=== PATIENT | female | born 1935 | race Caucasian/White ===

== ENCOUNTER → 2019-08-24 10:43 | Outpatient (BNVA) | payer MEDICARE, MEDICAID, SELFPAY | PROVIDERS: Family Provider Nurse Practitioner Family; PCP Nurse Practitioner Family; Visit Provider Family Medicine | DX: E11.9 Type 2 diabetes mellitus without complications (principal); Z79.4 Long term (current) use of insulin | CPT/HCPCS: 36415; 80053; 83036; 85025 ==

== ENCOUNTER → 2020-01-15 10:45 | Outpatient (BNVA) | payer MEDICARE, MEDICAID, SELFPAY | PROVIDERS: Family Provider Family Medicine; PCP Nurse Practitioner Family; Visit Provider Family Medicine | DX: E11.9 Type 2 diabetes mellitus without complications (principal); Z79.4 Long term (current) use of insulin | CPT/HCPCS: 36416; 83036 ==

== ENCOUNTER → 2020-03-12 10:50 | Outpatient (BNVA) | payer MEDICARE, MEDICAID, SELFPAY | PROVIDERS: Family Provider Family Medicine; PCP Nurse Practitioner Family; Visit Provider Family Medicine | DX: J43.0 Unilateral pulmonary emphysema [MacLeod's syndrome] (principal) | CPT/HCPCS: 71046 ==

== ENCOUNTER → 2020-07-03 11:06 | Outpatient (BNVA) | payer MEDICARE, MEDICAID, SELFPAY | PROVIDERS: Family Provider Family Medicine; PCP Nurse Practitioner Family; Visit Provider Family Medicine | DX: E11.9 Type 2 diabetes mellitus without complications (principal); I10 Essential (primary) hypertension; Z79.4 Long term (current) use of insulin; I25.119 Atherosclerotic heart disease of native coronary artery with unspecified angina pectoris | CPT/HCPCS: 36415; 80053; 80061; 83036; 85025 ==

== ENCOUNTER → 2020-10-02 10:39 | Outpatient (BNVA) | payer MEDICARE, MEDICAID, SELFPAY | PROVIDERS: Family Provider Family Medicine; PCP Nurse Practitioner Family; Visit Provider Family Medicine | DX: E11.9 Type 2 diabetes mellitus without complications (principal); Z79.4 Long term (current) use of insulin | CPT/HCPCS: 83036 ==

== ENCOUNTER → 2021-01-01 10:41 | Outpatient (BNVA) | payer MEDICARE, MEDICAID, SELFPAY | PROVIDERS: Family Provider Family Medicine; PCP Nurse Practitioner Family; Visit Provider Family Medicine | DX: E11.9 Type 2 diabetes mellitus without complications (principal); Z79.4 Long term (current) use of insulin | CPT/HCPCS: 83036 ==

== ENCOUNTER → 2021-04-20 11:01 | Outpatient (BNVA) | payer MEDICARE, MEDICAID, SELFPAY | PROVIDERS: Family Provider Family Medicine; PCP Nurse Practitioner Family; Visit Provider Family Medicine | DX: E11.9 Type 2 diabetes mellitus without complications (principal); Z79.4 Long term (current) use of insulin | CPT/HCPCS: 83036 ==

== ENCOUNTER → 2021-08-05 10:25 | Outpatient (BNVA) | payer MEDICARE, MEDICAID, SELFPAY | PROVIDERS: Family Provider Family Medicine; PCP Nurse Practitioner Family; Visit Provider Family Medicine | DX: E11.65 Type 2 diabetes mellitus with hyperglycemia (principal); Z79.4 Long term (current) use of insulin | CPT/HCPCS: 83036 ==

== ENCOUNTER → 2022-01-14 09:29 | Outpatient (BNVA) | payer MEDICARE, MEDICAID, SELFPAY | PROVIDERS: Family Provider Family Medicine; PCP Nurse Practitioner Family; Visit Provider Family Medicine | DX: E11.65 Type 2 diabetes mellitus with hyperglycemia (principal); Z79.4 Long term (current) use of insulin; H91.90 Unspecified hearing loss, unspecified ear; J43.0 Unilateral pulmonary emphysema [MacLeod's syndrome]; I10 Essential (primary) hypertension; I25.119 Atherosclerotic heart disease of native coronary artery with unspecified angina pectoris; J44.9 Chronic obstructive pulmonary disease, unspecified; R09.02 Hypoxemia | CPT/HCPCS: 82962; 83036 ==

== ENCOUNTER → 2022-01-20 14:00 | Outpatient (BNVA) | payer MEDICARE, MEDICAID, SELFPAY | PROVIDERS: Family Provider Family Medicine; PCP Nurse Practitioner Family; Visit Provider Family Medicine | DX: E11.9 Type 2 diabetes mellitus without complications (principal); I25.10 Atherosclerotic heart disease of native coronary artery without angina pectoris | CPT/HCPCS: 80053; 80061; 85025 ==

== ENCOUNTER → 2022-05-05 09:25 | Outpatient (BNVA) | payer MEDICARE, MEDICAID, SELFPAY | PROVIDERS: Family Provider Family Medicine; PCP Nurse Practitioner Family; Visit Provider Family Medicine | DX: E11.65 Type 2 diabetes mellitus with hyperglycemia (principal); Z79.4 Long term (current) use of insulin; L03.90 Cellulitis, unspecified; J44.9 Chronic obstructive pulmonary disease, unspecified; R09.02 Hypoxemia | CPT/HCPCS: 80053; 83036 ==

== ENCOUNTER → 2022-08-09 16:47 | Outpatient (BNVA) | payer MEDICARE, MEDICAID, SELFPAY | PROVIDERS: Family Provider Family Medicine; PCP Nurse Practitioner Family; Visit Provider Nurse Practitioner Family | DX: J44.0 Chronic obstructive pulmonary disease with (acute) lower respiratory infection (principal); J96.00 Acute respiratory failure, unspecified whether with hypoxia or hypercapnia; J44.1 Chronic obstructive pulmonary disease with (acute) exacerbation | CPT/HCPCS: 80048 ==

== ENCOUNTER 2022-08-10 11:38 | Inpatient (IN) | payer MEDICARE, MEDICAID, SELFPAY ==
[2022-08-10] VITALS (11 sets, daily range): BP systolic 124–144; BP diastolic 54–81; PULSE 90–115; RESP 12–25; TEMP 36.9; O2SAT 3–100
--- NOTE | 2022-08-10 12:03 | XRR_ITS ---
PROCEDURE INFORMATION: Exam: XR Chest Exam date and time: 08/10/2022 12:24 PM Age: 87 years old Clinical indication: Shortness of breath; Additional info: SOB TECHNIQUE: Imaging protocol: Radiologic exam of the chest. Views: 1 view. COMPARISON: CR XR chest 2V* [id number] 03/12/2020 11:00 AM FINDINGS: Lungs: Unremarkable. No consolidation. Pleural spaces: Moderate left lower lobe pleural effusion. No pneumothorax. Heart/Mediastinum: Unremarkable. No cardiomegaly. Bones/joints: Multiple chronic left rib fractures XR/XR chest 1V [id number] IMPRESSION: 1. Large left lower lobe pleural effusion 2. Chronic rib fractures left hemithorax 3. Otherwise negative chest examination
--- NOTE | 2022-08-10 12:04 | ED_ITS ---
HPI - SOB/Dyspnea General: Chief Complaint: Shortness of Breath/Dyspnea Stated Complaint: RESP. DISTRESS Time Seen by Provider: 08/10/22 11:52 Source: patient and EMS Mode of arrival: EMS Limitations: no limitations History of Present Illness: HPI Narrative: This patient was transported to our emergency department from a long-term care facility [facility] by EMS. History from EMS is that they were notified by [facility] that she seemed to have increasing oxygen requirement this morning. They arrived and noted to be on simple mask with an O2 saturation of 82%. She was alert otherwise. She was given 2 albuterol Neb en route. Patient who is somewhat hard of hearing but appears to be comfortable states that she has no chest pain and does not feel short of air at this time. She admits to wearing oxygen all the time. She denies any nausea vomiting diarrhea. She states she ate breakfast but cannot remember what it was this morning. Allegedly the patient was recently hospitalized at [facility] for approximately 10 days for pneumonia and COPD exacerbation. No records available currently. Pertinent past history: COPD Context: recent illness Severity: moderate Relieving factors: bronchodilators Known history of: COPD Associated symptoms: Deny abdominal pain, chest pain, fever(s), nausea, palpitations or vomiting Related Data: Home oxygen amount: 2 liters Review of Systems Const: Denies: fever(s) ENMT: Denies: odynophagia, nasal discharge or nasal congestion Card: Denies: chest pain or palpitations GI: Denies: abdominal pain, nausea, vomiting or diarrhea : Denies: difficulty voiding or dysuria Musc: Denies: back pain Skin/Breast: Denies: rash [facility] ED PFSH: Medical History CAD (coronary artery disease) COPD (chronic obstructive pulmonary disease) Diabetes Enrolled in chronic care management Hypertension Pedal edema Social History Smoking and tobacco status: former smoker Quit status (tobacco): has quit using tobacco Year quit tobacco: 1994 Alcohol intake: current Alcohol intake frequency: holidays/special occasions only Physical Exam Narrative: EXAM NARRATIVE: Elderly female who appears to be comfortable. Again somewhat hard of hearing but communicates appropriately when spoken to in a loud voice. Const: COMMON NORMALS: no acute distress, average body habitus and alert GENERAL APPEARANCE: cooperative and comfortable ORIENTATION/CONSCIOUSNESS: Yes awake and Yes oriented to person HENMT: COMMON NORMALS: normocephalic, Normal nasal mucous membranes and turbinates present, moist oral mucous membranes and oropharynx normal HEAD & SCALP: normocephalic NOSE: Normal nasal mucous membranes and turbinates present Eye: COMMON NORMALS: Equal, round and reactive pupils present, EOMs intact bilaterally and conjunctivae normal CONJUNCTIVA: Yes conjunctivae normal PUPIL: Yes Equal, round and reactive pupils present Neck/C-Spine: COMMON NORMALS: full ROM, no lymphadenopathy, no JVD and No carotid bruits Chest: COMMONS NORMALS: normal inspection of the chest and normal palpation of entire chest wall Resp: COMMON NORMALS: normal respiratory effort, No retractions and No use of accessory muscles EFFORT & INSPECTION: Yes able to speak in complete sentences AUSCULTATION: crackles (Scattered crackles at bases.) Cardio: COMMON NORMALS: no JVD, regular rate, regular rhythm, No murmurs present (Cardio) and Peripheral pulses 2+ throughout RATE: regular rate and tachycardic RHYTHM: regular rhythm PERIPHERAL PULSES: Peripheral pulses 2+ throughout GI: COMMON NORMALS: Normal to inspection, nondistended, normoactive bowel so unds present, Soft to palpation, non-tender and no masses PALPATION: Yes Soft to palpation : COMMON NORMALS: Yes no CVA tenderness BLADDER/KIDNEY EXAM: Yes no CVA tenderness Back/Pelvis: COMMON NORMALS: no CVA tenderness, no thoracic nor lumbar tenderness and straight leg raise negative bilaterally Extremity: COMMON NORMALS: normal to inspection, full ROM, capillary refill normal, no calf tenderness and no pedal edema Neuro: COMMON NORMALS: moves all extremities, no focal motor deficits and no sensory deficits noted SENSORIUM/ORIENTATION: Yes alert and Yes oriented to person Psych: COMMON NORMALS: mental status grossly normal Skin: COMMON NORMALS: no rashes or lesions noted, no wounds and turgor normal GENERAL SKIN EXAM: no rashes or lesions noted and turgor normal Course Reevaluation(s): Reevaluation #1: With somewhat unreliable waveform her O2 sat is around 90% on 3 L. We will go ahead and get an ABG to kind of determine her true ventilatory and oxygenation status at this time. I did speak with the RN at the long-term care facility who stated that she did not wear her BiPAP at night and she was not comfortable with that and it was a challenge to get her to wear her oxygen during the day as well. I also obtained additional history regarding her recent past from her daughter who is now present. Daughter states that she is never been told she had heart failure any, heart problems previously. She also stated that she had never been told she might have atrial fib. Time: 15:06 Consultations: Consultation #1: Discussed with hospitalist who agreed to admit the patient. Time: 15:28 Vital Signs: Vital signs: Vital Signs Temperature 98.4 F 08/10/22 11:47 Pulse Rate 111 H 08/10/22 14:30 Respiratory Rate 12 08/10/22 14:30 Blood Pressure 144/55 08/10/22 14:30 Pulse Oximetry 95 08/10/22 14:30 Oxygen Delivery Me thod 08/10/22 14:30 Oxygen Flow Rate 3 08/10/22 12:52 MDM - SOB/Dyspnea Medical Decision Making Patient presented to our emergency department with limited history. We will obtain some history from the patient as well as EMS. She had a history of recent hospitalization at [facility] for a COPD exacerbation and pneumonia and was discharged back to [facility]. She apparentl y was noted to be hypoxic on the usual supplemental oxygen today and EMS was notified and transported her to the emergency department. Differential at the time of arrival was COPD exacerbation versus possible heart failure versus ACS versus pulmonary embolus versus pneumonia. Work-up was begun and was notable and that the initial high-sensitivity troponin was elevated as well as her BNP. Suggesting ACS versus congestive heart failure. Also her D-dimer was elevated and therefore advanced imaging was obtained to evaluate for possible pulmonary embolus etc. Arterial blood gases were obtained due to the poor waveform on pulse oximetry which revealed compensated hypercarbic hypoxia. No evidence of pulmonary embolus was noted on CT she but she did have evidence of cardiac enlargement with a small left pleural effusion without any infiltrative process. It was felt that it is in the patient's best interest to be admitted to the hospital for continued diuresis, echocardiogram and following her serial troponins to rule out ACS etc. I obtained additional history from the daughter regarding her lack of cardiac history as well as additional history from the RN at the [facility] regarding her failure to do to use the prescribed CPAP. Medical Records I reviewed the patient's medical records. Outpatient records reveal history of diabetes as well as COPD as well as oxygen requiring. Discharge summary from [facility] was reviewed. She apparently had community-acquired pneumonia, COPD exacerbation with oxygen req uiring hypercapnia and hypoxia. No mention of pleural effusion at the time of discharge on her discharge summary. Lab Data I reviewed the patient's lab results. 08/10/22 12:44 08/10/22 12:44 Labs/Radiology: Radiology Impressions Chest X-Ray 08/10/22 12:03 IMPRESSION: 1. Large left lower lobe pleural effusion 2. Chronic rib fractures left hemithorax 3. Otherwise negative chest examination Chest CTA 08/10/22 13:51 IMPRESSION: 1. No pulmonary embolism. 2. Volume loss and atelectasis LEFT lower lobe with a small LEFT pleural effusion. 3. Mild LEFT heart enlargement. 4. Moderate atherosclerosis thoracic aorta. 5. Osteoporosis with compression fractures at T6 and T11. Laboratory Results WBC 16.9 10^3/uL (4.0-10.0) H 08/10/22 12:44 RBC 3.41 10^6/uL (4.1-5.3) L 08/10/22 12:44 Hgb 10.0 g/dL (11.5-15.3) L 08/10/22 12:44 Hct 33.3 % (37.0-47.0) L 08/10/22 12:44 MCV 97.7 fl (81-99) 08/10/22 12:44 MCH 29.3 pg (28.0-34.0) 08/10/22 12:44 MCHC 30.0 g/dL (30.0-36.0) 08/10/22 12:44 RDW 16.0 % (12.1-15.1) H 08/10/22 12:44 Plt Count 294 10^3/cmm (130-400) 08/10/22 12:44 MPV 11.9 fL (7.4-10.4) H 08/10/22 12:44 Neut % (Auto) 84.7 % 08/10/22 12:44 Lymph % (Auto) 9.0 % 08/10/22 12:44 Centre % (Auto) 5.2 % 08/10/22 12:44 Eos % (Auto) 0.2 % 08/10/22 12:44 Baso % (Auto) 0.2 % 08/10/22 12:44 Neut # (Auto) 14.29 10^3/uL (1.8-7.7) H 08/10/22 12:44 Lymph # (Auto) 1.5 10^3/uL (0.8-4.8) 08/10/22 12:44 Centre # (Auto) 0.9 10^3/uL (0.2-0.9) 08/10/22 12:44 Eos # (Auto) 0.0 10^3/uL (0.0-0.8) 08/10/22 12:44 Baso # (Auto) 0.0 10^3/uL (0.0-0.1) 08/10/22 12:44 Nucleated RBC % (auto) 0 % 08/10/22 12:44 Nucleated RBCs # 0.0 /100WBC 08/10/22 12:44 D-Dimer 2.00 ug/mIFEU (0-0.59) H 08/10/22 12:44 Specimen Type Arterial 08/10/22 15:05 Sample Site Radial, left 08/10/22 15:05 ABG pH 7.45 (7.35-7.45) 08/10/22 15:05 ABG pCO2 57.3 mmHg (35-45) H 08/10/22 15:05 ABG pO2 57.5 mmHg (80.0-100.0) L 08/10/22 15:05 ABG HCO3 39.7 mmol/L (22-26) H 08/10/22 15:05 ABG O2 Saturation 90.7 08/10/22 15:05 ABG Base Excess 13.8 mmol/L (-2.0-2.0) H 08/10/22 15:05 Abel Test Pos 08/10/22 15:05 A-a O2 Gradient 2.8 mmHg (5-10) L 08/10/22 15:05 Hematocrit 30.2 % (37-47) L 08/10/22 15:05 Hgb O2 Saturation 89.0 % (95-100) L 08/10/22 15:05 Carboxyhemoglobin 1.2 %THgb (0.4-20.1) 08/10/22 15:05 Methemoglobin 0.6 % (0.4-1.5) 08/10/22 15:05 Total Hemoglobin 9.9 g/dL (12-16) L 08/10/22 15:05 Sodium 144.0 mmol/L (131-143) H 08/10/22 15:05 Potassium 4.1 mmol/L (3.5-5.0) 08/10/22 15:05 Glucose 97.0 mg/dL (70-115) 08/10/22 15:05 Ionized Calcium 1.1 mmol/L (1.1-1.4) 08/10/22 15:05 O2 Delivery Device Nc 08/10/22 15:05 O2 Liters/Min 4.0 % 08/10/22 15:05 Web Offset Press Feeder ID Walci 08/10/22 15:05 Sodium 145 mmol/L (136-145) 08/10/22 12:44 Potassium 4.5 mmol/L (3.5-5.1) 08/10/22 12:44 Chloride 98 mmol/L (98-107) 08/10/22 12:44 Carbon Dioxide 36 mmol/L (22-29) H 08/10/22 12:44 Anion Gap 15.5 (5-19) 08/10/22 12:44 BUN 24 mg/dL (8-23) H 08/10/22 12:44 Creatinine 0.6 mg/dL (0.5-0.9) 08/10/22 12:44 GFR Calculation Not Reportable 08/10/22 12:44 Glucose 136 mg/dL (65-115) H 08/10/22 12:44 Calculated Osmolality 306 mOsm/kg (285-295) H 08/10/22 12:44 Lactate 1.5 mmol/L (0.5-2.2) 08/10/22 12:44 Calcium 8.2 mg/dL (8.5-10.5) L 08/10/22 12:44 Total Bilirubin 0.3 mg/dL (0.15-1.2) 08/10/22 12:44 AST 21 U/L (0-32) 08/10/22 12:44 ALT 41 U/L (0-33) H 08/10/22 12:44 Alkaline Phosphatase 62 U/L (35-105) 08/10/22 12:44 Troponin T Baseline 149 ng/L (0-10) H* 08/10/22 12:44 Troponin T 120 Minute 124.2 ng/L (0-10) H 08/10/22 14:25 Delta Troponin T -24.8 ABS# (0-10) L 08/10/22 14:25 NT-Pro-B Natriuret Pep 64590 pg/mL (0-450) H 08/10/22 12:44 Total Protein 5.9 g/dL (6.6-8.7) L 08/10/22 12:44 Albumin 3.0 g/dL (3.5-5.2) L 08/10/22 12:44 Globulin 2.9 g/dL (1.3-4.6) 08/10/22 12:44 EKG Data EKG 1: I personally reviewed and interpreted this EKG as follows: Interpretation: Contemporaneous real-time EKG interpretation reveals resting EKG shows atrial fibrillation with a rapid ventricular response of 106 bpm. QRS duration is normal. No acute ST-T wave changes noted at this time. No prior tracing available for comparison. EKG 2: I personally reviewed and interpreted this EKG as follows: Interpretation: Second resting EKG this visit was contemporaneously reviewed. She has a vent ricular rate of 100 bpm. Compared with prior tracing earlier this visit she is now in sinus tachycardia with a right bundle branch block pattern. Normal MI interval. QTC is normal. No acute ST-T wave changes noted. Discharge Plan Discharge Patient Disposition: Placed in Observation Clinical Impression: COPD with hypoxia, Diabetes, Congestive heart failure Coding Level of Care Code ED Plaster Form Maker for Monica Fwd Exam Comprehensive
--- NOTE | 2022-08-10 12:36 | ECG_ITS ---
[facility] Test Date: 2022-08-10 Pat Name: Robin Gonzalez Department: Room: Gender: Female Flagsetter: : 1935 Requested By: Lio Araya Order Number: [id number] Mauricio MD: Matt Michelle M.D. Measurements Intervals [place] Rate: 106 P: 0 IN: 0 QRS: -53 QRSD: 128 T: 11 QT: 334 QTc: 444 Interpretive Statements ATRIAL FIBRILLATION WITH RAPID VENTRICULAR RESPONSE RIGHT BUNDLE BRANCH BLOCK [120+ ms QRS DURATION, UPRIGHT V1, 40+ ms S IN I/aVL/V4/V5/V6] LEFT ANTERIOR FASCICULAR BLOCK [QRS AXIS <= -45, QR IN I, RS IN II] POSSIBLE ANTERIOR MYOCARDIAL INFARCTION , PROBABLY OLD [30 ms Q WAVE IN V3/V4, OR R < 0.2 mV IN V4] No previous ECG available for comparison Electronically Signed On 08-10-2022 14:44:01 MILK DRIVER by Matt Michelle M.D. [id number]
[2022-08-10 12:52] LABS: Basophils % 0.2 %; Eosinophils % 0.2 %; Hematocrit 33.3 % (37.0-47.0); Lymphocytes # 1.5 10^3/uL (0.8-4.8); Mean Corpuscular Hemoglobin 29.3 pg (28.0-34.0); Mean Corpuscular Volume 97.7 fl (81-99); Mean Platelet Volume 11.9 fL (7.4-10.4); Monocytes # 0.9 10^3/uL (0.2-0.9); Monocytes % 5.2 %; Neutrophils # 14.29 10^3/uL (1.8-7.7); Neutrophils % 84.7 %; Nucleated Red Blood Cells % 0 %; Platelet Count 294 10^3/cmm (130-400); Red Blood Count 3.41 10^6/uL (4.1-5.3); White Blood Count 16.9 10^3/uL (4.0-10.0)
[2022-08-10] MEDS: sodium chloride 0.9% 500 ML IV (12:57)
[2022-08-10 13:16] LABS: Lactate (Lactic Acid level) 1.5 mmol/L (0.5-2.2)
[2022-08-10 13:24] LABS: Troponin(5th) Baseline 149 ng/L (0-10)
[2022-08-10 13:27] LABS: Alanine Aminotransferase 41 U/L (0-33); Alkaline Phosphatase 62 U/L (35-105); Anion Gap 15.5 (5-19); Aspartate Amino Transferase 21 U/L (0-32); Blood Urea Nitrogen 24 mg/dL (8-23); Calcium 8.2 mg/dL (8.5-10.5); Carbon Dioxide 36 mmol/L (22-29); Chloride 98 mmol/L (98-107); Globulin 2.9 g/dL (1.3-4.6); Glucose 136 mg/dL (65-115); NT Pro B Type Natriuretic Pept 12442 pg/mL (0-450); Osmolality Calculated 306 mOsm/kg (285-295); Potassium 4.5 mmol/L (3.5-5.1); Sodium 145 mmol/L (136-145); Total Bilirubin 0.3 mg/dL (0.15-1.2); Total Protein 5.9 g/dL (6.6-8.7)
[2022-08-10] MEDS: aspirin 81 mg Chew Tablet 324 MG PO (13:31)
--- NOTE | 2022-08-10 13:51 | CT_ITS ---
WS: [id number] CT CHEST ANGIOGRAPHY WITH REFORMATS HISTORY: increased o2 requirement elevated TECHNIQUE: Contiguous axial images are obtained through the chest during arterial injection of intrav enous contrast. Images are reconstructed to evaluate the pulmonary arteries. MIP imaging also reviewe d. All CT scans at [facility] use at least one of these dose optimization techniques: automat ed exposure control; mA and/or kV adjustment per patient size (includes targeted exams where dose is matched to clinical indication); or iterative reconstruction. CONTRAST: Omnipaque 350; 87 mL IV. DLP: 415.58 mGy.cm COMPARISON: None available. Motion artifact obscuring small details. Very good opacification of the pulmonary arteries. No central pulmonary emboli. Limited opacification of the LEFT lower lobe segmental through subsegmental arteries due to consolidation in the LEFT lowe r lobe. There are no large central pulmonary emboli. Pulmonary artery is top normal size. Moderate at herosclerotic changes throughout the thoracic aorta. No dissection or aneurysm. Heavy calcification c ontinues into the proximal LEFT subclavian artery. Significant breathing motion artifact is obscuring detail throughout the lung. There is a small LEFT pleural effusion with adjacent subsegmental atelectasis. Small subsegmental atelectasis in the lingul a. No pneumothorax. No adenopathy. No RIGHT heart strain. LEFT ventricle is mildly dilated. No perica rdial effusion. Small hiatal hernia. Severe osteopenia. 50% T6 compression fracture. Mild anterior wedging of T11. CT/CT angio chest PE protcl [id number] IMPRESSION: 1. No pulmonary embolism. 2. Volume loss and atelectasis LEFT lower lobe with a small LEFT pleural effus ion. 3. Mild LEFT heart enlargement. 4. Moderate atherosclerosis thoracic aorta. 5. Osteoporosis with compression fractures at T6 and T11.
--- NOTE | 2022-08-10 14:03 | ECG_ITS ---
[facility] Test Date: 2022-08-10 Pat Name: Robin Gonzalez Department: Room: Gender: Female Pad Hand: : 1935 Requested By: Lio Araya Order Number: [id number] Mauricio MD: Matt Michelle M.D. Measurements Intervals [place] Rate: 100 P: -58 NC: 166 QRS: -53 QRSD: 125 T: 22 QT: 371 QTc: 479 Interpretive Statements SINUS TACHYCARDIA WITH OCCASIONAL SUPRAVENTRICULAR PREMATURE COMPLEXES RIGHT BUNDLE BRANCH BLOCK [120+ ms QRS DURATION, UPRIGHT V1, 40+ ms S IN I/aVL/V4/V5/V6] LEFT ANTERIOR FASCICULAR BLOCK [QRS AXIS <= -45, QR IN I, RS IN II] POSSIBLE ANTERIOR MYOCARDIAL INFARCTION , OF INDETERMINATE AGE [30 ms Q WAVE IN V3/V4, OR R < 0.2 mV IN V4] Compared to ECG 08/10/2022 12:36:16 Atrial fibrillation no longer present Myocardial infarct finding still present Electronically Signed On 08-10-2022 14:47:13 RESEARCH LABORATORY TECHNICIAN by Matt Michelle M.D. [id number]
[2022-08-10] MEDS: iohexol 350 mg/mL 500 mL Btl (per mL) IV (14:18)
[2022-08-10 14:49] LABS: Troponin 5 2HR Delta -24.8 ABS# (0-10)
[2022-08-10 14:50] LABS: Troponin 5 2HR 124.2 ng/L (0-10)
[2022-08-10 15:16] LABS: ABG PCO2 57.3 mmHg (35-45); ABG PH Result 7.45 (7.35-7.45); Alveolar-Arterial Oxygen Gradi 2.8 mmHg (5-10); Arterial Blood Gas Hematocrit 30.2 % (37-47); Base Excess ABG 13.8 mmol/L (-2.0-2.0); Blood Gas Allen Test Pos; Blood Gas Operator Identificat WALCI; Blood Gas Sample Site Radial, left; Blood Gas Sample Type Arterial; Carboxyhemoglobin 1.2 %THgb (0.4-20.1); HCO3 ABG 39.7 mmol/L (22-26); Ionized Calcium Level - ABG 1.1 mmol/L (1.1-1.4); Methemoglobin 0.6 % (0.4-1.5); Oxygen Device NC; Oxygen Saturation ABG 90.7; PO2 ABG 57.5 mmHg (80.0-100.0); Potassium Level - ABG 4.1 mmol/L (3.5-5.0); Total Hemoglobin 9.9 g/dL (12-16)
--- NOTE | 2022-08-10 16:00 | PC.NURSE ---
Pt incontinent of stool and urine, skin cleaned, linens changed.
[2022-08-10] MEDS: FUROsemide 10 mg/mL SDV 4mL 40 MG IVP (16:06)
--- NOTE | 2022-08-10 16:23 | USCV_ITS ---
Robin Gonzalez Age: 87 Gender: F : 1935 Exam Date: 08/10/2022 16:56 Ordering Phys: Larry Rocha MD Technologist: TYSHAWN [place] [facility] [place]: SHORTNESS OF BREATH BP: 135 / 60 HR: 96 Rhythm: Sinus Technical Quality: Adequate MEASUREMENTS (Male / Female) Normal Values 2D ECHO LVOT Diameter 2.0 cm LV Ejection Fraction MOD 2C 41.9 % LV Ejection Fraction 2C AL 40.8 % LA Diameter 3.5 cm LA Width 3.0 cm LA Height 5.0 cm RA Width 2.7 cm RA Height 4.1 cm Aorta at Sinotubular Diameter 2.4 cm IVC Diameter 1.8 cm M-MODE Aortic Annulus Diameter 2.6 cm LA Ao Ratio MM 1.4 MV E Point Septal Separation 0.3 cm DOPPLER AV Peak Velocity 227.7 cm/s LVOT Peak Velocity 94.0 cm/s AV Area Cont Eq vti 1.5 cm squared AV Area Cont Eq pk 1.3 cm squared MV Peak Velocity 130.0 cm/s MV Area PHT 3.5 cm squared Mitral E to A Ratio 0.8 MV E' Velocity 62.0 cm/s Mitral E to MV E' Ratio 13.9 Mitral E to LV E' Lateral Ratio 11.9 Mitral E to LV E' Septal Ratio 17.1 TR Peak Velocity 209.9 cm/s TR Peak Gradient 17.6 mmHg TR Mean Velocity 179.0 cm/s TR Mean Gradient 12.8 mmHg TR Velocity Time Integral 66.4 cm TV Peak E Velocity 53.0 cm/s Right Atrial Pressure 3.0 mmHg Pulmonary Artery Systolic Pressu 20.6 mmHg PV Peak Velocity 100.0 cm/s RV Acceleration Time 0.1 s RV Ejection Time 0.3 s RV AcT/ET 0.5 FINDINGS Left Ventricle Normal left ventricular size, systolic function and wall thickness, with no regional wall motion abnormalities. Left ventricular ejection fraction is estimated at 60 %. Grade II diastolic dysfunction, moderately elevated filling pressures. Right Ventricle Normal right ventricular size and systolic function. Right ventricular systolic pressure 20.6 mmHg. Right Atrium Normal right atrial size. Left Atrium Mildly increased left atrial size. Mitral Valve Thickened mitral valve. Severe mitral annular calcification. No mitral valve stenosis. Trace mitral valve regurgitation. Aortic Valve Thickened and calcified aortic valve. No aortic valve stenosis. [id number] aortic valve regurgitation. Tricuspid Valve Structurally normal tricuspid valve. Trace tricuspid valve regurgitation. Pulmonic Valve Pulmonic valve not well visualized. Pericardium No pericardial effusion. Aorta Normal size aortic root and proximal ascending aorta. IVC Normal IVC dimension with >50% respiratory change of the inferior vena cava. CONCLUSIONS 1. Normal left ventricular size, systolic function and wall thickness, with no regional wall motion abnormalities. Left ventricular ejection fraction is estimated at 60 %. Grade II diastolic dysfunction, moderately elevated filling pressures. 2. [id number]-[id number] aortic valve regurgitation. 3. No prior similar studies to compare. Yuli Wells MD (Electronically Signed) Final Date: 11 August 2022 08:55 S
--- NOTE | 2022-08-10 16:24 | P.HP_ITS ---
Providers/Chief Complaint Admitting Physician: Larry Rocha MD Primary Care Provider: Ann Oneill NP Chief Complaint: RESP. DISTRESS History of Present Illness Robin Gonzalez is a 87 year old female with past medical history of hypertension diabetes coronary artery disease, recently discharged after 2 weeks of hospital stay after being managed for pneumonia and COPD On BiPAP to usp in [facility],was brought in today with chief complaint of shortness of breath,And desaturation at the usp, patient is extremely hard of hearing, daughter was at bedside, and was very useful in providing the history, and assisting with review of system questions. When EMS arrived at nursing facility they found her to be desaturating to 82% on simple mask. She was complaining of shortness of breath, denied any fever cough, chest pain, abdominal pain nausea vomiting.In ER she was found to be in A. fib with RVR. She was saturating well on 2 to 3 L supplemental oxygen, she is a mouth breather. CTA chest : No pulmonary embolism: Small left pleural effusion, Volume loss and atelectasis LEFT lower lobe.Osteoporosis with compression fractures at T6 and T11 Pertinent labs : WBC 16.9, H&H 10/33 , plt : 294 , serum sodium 145 serum potassium 4.5, serum bicarb 36, BUN/ serum creatinine: 24/0.6 , lactic acid 1.5 Troponin: 149-124 proBNP:69471 ABG: pH 7.45, PCO2 57, PO2 57, FiO2: 36% D-dimer 2 Given Lasix 40 in the ER as well as aspirin 324 p.o. one-time dose, she was also given 500 cc normal saline one-time. Review of Systems General: Reports: 10 or more systems reviewed and unremarkable except in HPI and below Const: Denies: fever(s) or diaphoresis Card: Reports: orthopnea Resp: Reports: dyspnea; Denies: productive cough, wheezing or pain on inspiration GI: Denies: abdominal pain, nausea, vomiting, diarrhea or constipation : Denies: flank pain Musc: Denies: back pain, extremity pain or extremity swelling Neuro: Denies: headache(s) Medications/Allergies Home Medications Medication Instructions Recorded Confirmed Last Taken Type melatonin 1 mg tablet 1 mg PO BEDTIME 08/24/19 08/10/22 Unknown History nitroglycerin 0.4 mg sublingual 0.4 mg sublingual Q5M PRN Chest 08/24/19 08/10/22 Unknown History tablet Pain pen needle, diabetic 32 gauge x #50 ea 09/09/21 08/10/22 Unknown Rx 1/4 (BD Ultra-Fine Micro Pen Needle) baclofen 10 mg tablet See Rx Instructions .Route 10/26/21 08/10/22 Unknown Rx .COMPLEX #30 tabs metformin 500 mg tablet See Rx Instructions .Route 01/14/22 08/10/22 Unknown Rx .COMPLEX #180 tabs potassium chloride 20 mEq 20 meq PO DAILY #30 tabs 01/21/22 08/10/22 Unknown Rx tablet,extended release albuterol sulfate 90 mcg/actuation See Rx Instructions .Route 04/15/22 08/10/22 Unknown Rx aerosol inhaler .COMPLEX #8.5 grams budesonide-formoterol HFA 160 See Rx Instructions .Route 04/15/22 08/10/22 Unknown Rx mcg-4.5 mcg/actuation aerosol .COMPLEX #10.2 grams inhaler (Symbicort) insulin aspart U-100 100 unit/mL See Rx Instructions SUBCUT QAM 04/19/22 08/10/22 Unknown History (3 mL) subcutaneous pen (Novolog FlexPen U-100 Insulin aspart) semaglutide 3 mg tablet (Rybelsus) 3 mg PO DAILY 04/19/22 08/10/22 Unknown History insulin detemir U-100 100 unit/mL 15 unit SUBCUT BID 05/05/22 08/10/22 Unknown History (3 mL) subcutaneous pen (Levemir FlexTouch U-100 Insulin) acetaminophen 325 mg tablet 650 mg PO Q4H PRN Pain 08/10/22 08/10/22 Unknown History bisacodyl 10 mg rectal suppository [address] DAILY PRN Constipation 08/10/22 08/10/22 Unknown History furosemide 40 mg tablet 40 mg PO BID 08/10/22 08/10/22 Unknown History loperamide 2 mg capsule 2 mg PO ONCE PRN Diarrhea 08/10/22 08/10/22 Unknown History magnesium hydroxide 400 mg/5 mL 30 ml PO DAILY PRN Constipation 08/10/22 08/10/22 Unknown History oral suspension (Milk of Magnesia) Allergies Allergy/AdvReac Type Severity Reaction Status Date / Time No Known Allergies Allergy Verified 05/05/22 09:29 PFSH Acute PFSH: Medical History CAD (coronary artery disease) COPD (chronic obstructive pulmonary disease) Diabetes Enrolled in chronic care management Hypertension Pedal edema Social History Smoking and tobacco status: former smoker Quit status (tobacco): has quit using tobacco Year quit tobacco: 1994 Alcohol intake: current Alcohol intake frequency: holidays/special occasions o nly Vitals/I&O/Wt Last Vital Signs Temp 98.4 F 08/10/22 11:47 Pulse 111 H 08/10/22 14:30 Resp 12 08/10/22 14:30 BP 144/55 08/10/22 14:30 Pulse Ox 95 08/10/22 14:30 O2 Del Method 08/10/22 14:30 O2 Flow Rate 3 08/10/22 12:52 Physical Exam Narrative: Patient is extremely hard of hearing, not in acute distress HENMT: COMMON NORMALS: normocephalic and atraumatic HEAD & SCALP: normocephalic and atraumatic Resp: COMMON NORMALS: clear to auscultation bilaterally AUSCULTATION: clear to auscultation bilaterally Cardio: COMMON NORMALS: No murmurs present (Cardio), No rub (Cardio) and Peripheral pulses 2+ throughout PERIPHERAL PULSES: Peripheral pulses 2+ throughout GI: COMMON NORMALS: Normal to inspection, nondistended, normoactive bowel sounds present, Soft to palpation, non-tender, No hepatosplenomegaly present and no masses AUSCULTATION: Yes normoactive bowel sounds PALPATION: Yes Soft to palpation and Yes No hepatosplenomegaly present RECTAL EXAM: deferred Extremity: COMMON NORMALS: no clubbing, cyanosis or edema and no pedal edema Urinary Catheter Management: Harvey: Cath Placed During This Visit: yes Urinary Catheter Date of Insertion: 08/10/22 Urinary Catheter Time of Insertion: 16:05 Data 08/10/22 12:44 08/10/22 12:44 A&P Assessment and plan (1) Congestive heart failure: (2) Type 2 diabetes mellitus: Qualifiers: Diabetes mellitus long-term insulin use: with long-term use Diabetes mellitus complication status: with hyperglycemia Qualified Code(s): E11.65 - Type 2 diabetes mellitus with hyperglycemia; Z79.4 - [facility] (current) use of insulin (3) COPD (chronic obstructive pulmonary disease): (4) 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 transplanted heart: [place] heart Associated angina: with unspecified angina Qualified Code(s): I25.119 - Atherosclerotic heart disease of [place] coronary artery with unspecified angina pectoris (7) NSTEMI (non-ST elevated myocardial infarction): (8) Atrial fibrillation with RVR: (9) Osteoporosis: (10) Compression fracture: (11) Anemia: Omar Gonzalez is a 87 year old female with past medical history of hypertension diabetes coronary artery disease, recently discharged after 2 weeks of hospital stay after being managed for pneumonia and COPD On BiPAP to usp in [facility],was brought in today with chief complaint of shortness of breath,And desaturation at the usp. Assessment: Decompensated heart failure currently type unknown: Patient has, left-sided pleural effusion, elevated proBNP, orthopnea. Follow-up 2D echo Continue Lasix 40 IV twice daily Monitor intake output charting Monitor daily weight Monitor electrolytes ( k>4,mg>2 ) Newly diagnosed A. fib with RVR: Patient has no known prior history of A. fib, risk factors include hypertension diabetes age COPD, possible sleep apnea. Continue metoprolol tartrate 25 mg p.o. twice daily Telemetry monitoring, EKG Currently family has decided against therapeutic anticoagulation, given her age and, underlying comorbid conditions risk of fall, risk of bleeding. Currently on aspirin and prophylactic Lovenox NSTEMI: troponin: 149-124 Follow 6-hour troponin 2D echo as above Possible underlying pneumonia: The low clinical suspicion: Given her history of recent hospitalization: Ideally should be covered for MRSA, but given low clinical suspicion for possible underlying pneumonia, will avoid using Vanco for now. CTA chest: Has shown : CTA chest : No pulmonary embolism: Small left pleural effusion, Volume loss and atelectasis LEFT lower lobe. Elevated white count of 16.9 Follow blood culture Urine cultures MRSA PCR Urine Legionella antigen Bacterial antigen panel Procalcitonin Currently on ceftriaxone azithromycin History of COPD: Continue DuoNebs Home inhalers Supplemental oxygen as needed BiPAP as needed Diabetes: SSI, diabetic diet, monitor fingerstick glucose Hypertension: On metoprolol CODE STATUS:AND DVT prophylaxis on Lovenox Attestations Medical Necessity Statement*: Patient is to be in hospital management of NSTEMI. Anticipated length of stay greater than 2 midnights Time Spent in Patient Care: Greater than 35 minutes (>than 50% of time spent in counselling and/or direct pt care on unit) . 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 transplanted heart: [place] heart Associated angina: with unspecified angina NSTEMI (non-ST elevated myocardial infarction) I21.4 Atrial fibrillation with RVR I48.91 Osteoporosis M81.0 Compression fracture Anemia D64.9
--- NOTE | 2022-08-10 16:35 | PC.NURSE ---
Attempted to call report, nurse will call me back
[2022-08-10] MEDS: azithromycin 500 MG in sodium chloride 0.9% 250 ML 250 MG IV (18:00)
[2022-08-10] MEDS: enoxaparin 40 mg/0.4 mL Syringe SUBCUT (18:03)
--- NOTE | 2022-08-10 18:03 | ECG_ITS ---
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 Measurements Intervals [place] Rate: 109 P: 0 [place]: 0 QRS: -50 QRSD: 125 T: 13 QT: 378 QTc: 510 Interpretive Statements ATRIAL FIBRILLATION WITH RAPID VENTRICULAR RESPONSE RIGHT BUNDLE BRANCH BLOCK [120+ ms QRS DURATION, UPRIGHT V1, 40+ ms S IN I/aVL/V4/V5/V6] LEFT ANTERIOR FASCICULAR BLOCK [QRS AXIS <= -45, QR IN I, RS IN II] Compared to ECG 08/10/2022 14:46:35 Sinus tachycardia no longer present Myocardial infarct finding no longer present Electronically Signed On 08-10-2022 21:36:22 SEASONAL RECRUITER by Matt Michelle M.D. [id number]
[2022-08-10 18:19] LABS: Glucose Point of Care 90 mg/dL (70-110)
[2022-08-10] MEDS: cefTRIAXone 1,000 MG in sodium chloride 0.9% (plus) 50 ML 100 MG IV (18:30)
[2022-08-10] MEDS: ipratropium-albuterol 3 mL Neb INHALATION (20:16)
[2022-08-10] MEDS: acetylcysteine 200 mg/mL SDV 4 mL 100 MG INHALATION (20:16)
[2022-08-10] MEDS: budesonide 0.5 mg/2 mL Neb INHALATION (20:16)
[2022-08-10] MEDS: metoprolol tartrate 25 mg Tablet PO (21:17)
[2022-08-10 21:18] LABS: Glucose Point of Care 57 mg/dL (70-110)
[2022-08-10 21:54] LABS: Glucose Point of Care 51 mg/dL (70-110)
[2022-08-10 22:49] LABS: Glucose Point of Care 185 mg/dL (70-110)
[2022-08-11] VITALS (16 sets, daily range): BP systolic 122–146; BP diastolic 55–93; PULSE 88–112; RESP 16–30; TEMP 36.4–37.3; O2SAT 90–99
[2022-08-11 02:13] LABS: Glucose Point of Care 156 mg/dL (70-110)
[2022-08-11] MEDS: ipratropium-albuterol 3 mL Neb INHALATION ×3 (02:18→14:14)
[2022-08-11] MEDS: acetylcysteine 200 mg/mL SDV 4 mL 100 MG INHALATION ×3 (02:18→14:14)
[2022-08-11] MEDS: FUROsemide 10 mg/mL SDV 4mL 40 MG IVP ×2 (06:05→17:21)
--- NOTE | 2022-08-11 06:35 | ECG_ITS ---
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 Measurements Intervals [place] Rate: 99 P: 0 [place]: 0 QRS: -65 QRSD: 129 T: 37 QT: 372 QTc: 479 Interpretive Statements SINUS RHYTHM WITH SINUS ARRHYTHMIA AND PAC'S RIGHT BUNDLE BRANCH BLOCK LEFT ANTERIOR FASCICULAR BLOCK POSSIBLE ANTERIOR MYOCARDIAL INFARCTION , OF INDETERMINATE AGE Compared to ECG 08/10/2022 18:29:18 Myocardial infarct finding now present Electronically Signed On 08-11-2022 7:39:32 UNDERCOLLAR BASTER by Yuli Wells M.D. [id number]
[2022-08-11 06:38] LABS: Glucose Point of Care 97 mg/dL (70-110)
[2022-08-11] MEDS: budesonide 0.5 mg/2 mL Neb INHALATION (07:59)
[2022-08-11] MEDS: metoprolol tartrate 50 mg Tablet PO (09:56)
[2022-08-11] MEDS: potassium chloride ER 20 mEq Tablet PO (09:56)
[2022-08-11] MEDS: aspirin 81 mg EC Tablet PO (09:56)
[2022-08-11 10:42] LABS: Basophils # 0.1 10^3/uL (0.0-0.1); Basophils % 0.3 %; Eosinophils # 0.1 10^3/uL (0.0-0.8); Eosinophils % 0.4 %; Hematocrit 30.1 % (37.0-47.0); Hemoglobin 9.1 g/dL (11.5-15.3); Lymphocytes # 1.4 10^3/uL (0.8-4.8); Lymphocytes % 8.5 %; Mean Corpuscular HGB Conc 30.2 g/dL (30.0-36.0); Mean Corpuscular Hemoglobin 28.7 pg (28.0-34.0); Mean Platelet Volume 12.1 fL (7.4-10.4); Monocytes # 0.8 10^3/uL (0.2-0.9); Monocytes % 4.9 %; Neutrophils # 13.73 10^3/uL (1.8-7.7); Neutrophils % 85.5 %; Nucleated Red Blood Cells % 0 %; Platelet Count 282 10^3/cmm (130-400); Red Blood Count 3.17 10^6/uL (4.1-5.3); White Blood Count 16.1 10^3/uL (4.0-10.0)
[2022-08-11 10:55] LABS: INR 1.37 (0.8-1.2)
[2022-08-11 10:57] LABS: Partial Thromboplastin Time 27.8 SECONDS (23.9-36.7)
[2022-08-11 10:59] LABS: Troponin T (5th) Once 93 ng/L (0-10)
[2022-08-11 11:03] LABS: Alanine Aminotransferase 32 U/L (0-33); Albumin Level 2.6 g/dL (3.5-5.2); Alkaline Phosphatase 54 U/L (35-105); Aspartate Amino Transferase 16 U/L (0-32); Blood Urea Nitrogen 22 mg/dL (8-23); Calcium 7.8 mg/dL (8.5-10.5); Carbon Dioxide 34 mmol/L (22-29); Chloride 93 mmol/L (98-107); Globulin 3.3 g/dL (1.3-4.6); Glucose 314 mg/dL (65-115); Magnesium 1.2 mg/dL (1.7-2.3); Osmolality Calculated 307 mOsm/kg (285-295); Sodium 141 mmol/L (136-145); Total Bilirubin 0.3 mg/dL (0.15-1.2); Total Protein 5.9 g/dL (6.6-8.7)
[2022-08-11 11:07] LABS: Procalcitonin 2.02 ng/mL (0-0.5)
[2022-08-11] MEDS: magnesium sulfate premix 2 GM/50 ML PIGGYBACK IV (11:34)
--- NOTE | 2022-08-11 11:39 | ECG_ITS ---
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 Measurements Intervals [place] Rate: 107 P: 0 [place]: 0 QRS: -55 QRSD: 122 T: 11 QT: 352 QTc: 471 Interpretive Statements SINUS RHYTHM WITH FREQUENT PAC'S RIGHT BUNDLE BRANCH BLOCK [120+ ms QRS DURATION, UPRIGHT V1, 40+ ms S IN I/aVL/V4/V5/V6] LEFT ANTERIOR FASCICULAR BLOCK [QRS AXIS <= -45, QR IN I, RS IN II] POSSIBLE ANTERIOR MYOCARDIAL INFARCTION , OF INDETERMINATE AGE [30 ms Q WAVE IN V3/V4, OR R < 0.2 mV IN V4] Compared to ECG 08/11/2022 06:35:59 Sinus rhythm no longer present Sinus arrhythmia no longer present Myocardial infarct finding still present Electronically Signed On 08-12-2022 10:13:02 STEWARD/STEWARDESS BANQUET by Yuli Wells M.D. [id number]
[2022-08-11 11:41] LABS: Glucose Point of Care 393 mg/dL (70-110)
[2022-08-11 11:41] LABS: Glucose Point of Care 417 mg/dL (70-110)
[2022-08-11] MEDS: insulin lispro 100 unit/1 mL SUBCUT ×3 (11:45→20:47)
--- NOTE | 2022-08-11 14:22 | PM.PN ---
Subjective Subjective: Patient was seen and examined this morning, denied any significant shortness of breath chest pain. Saturating well on simple facemask. Medications: Medication Review Details: Generic Name Dose Route Start Last Admin Trade Name Florin PRN Reason Stop Dose Admin Acetylcysteine 100 mg 08/10/22 20:00 08/11/22 14:14 Acetylcysteine 2 00 Mg/Ml Sdv 4 Ml INHALATION 100 mg Q6H.RESP EARNESTINE Administration Aspirin 81 mg 08/11/22 09:00 08/11/22 09:56 Aspirin 81 Mg Ec Tablet PO 81 mg DAILY EARNESTINE Administration Budesonide 0.5 mg 08/10/22 20:00 08/11/22 07:59 Budesonide 0.5 M g/2 Ml Neb INHALATION 0.5 mg BID.RESPIRATORY S CH Administration Furosemide 40 mg 08/11/22 07:00 08/11/22 06:05 Furosemide 10 Mg /Ml Sdv 4ml IVP 40 mg BID EARNESTINE Administration Ceftriaxone Sodium 1,000 mg/ 50 mls @ 100 mls/ hr 08/10/22 17:30 08/10/22 19:25 Sodium Chloride IV Infused Q24H EARNESTINE Infusion Protocol Azithromycin 500 m g/ Sodium 250 mls @ 250 mls /hr 08/10/22 16:30 08/10/22 18:00 Chloride IV 250 mls/hr Q24H EARNESTINE Administration Protocol Metoprolol Tartrat e 50 mg 08/11/22 09:00 08/11/22 09:56 Metoprolol Tartr ate 50 Mg Tablet PO 50 mg BID@0900,2100 EARNESTINE Administration Potassium Chloride 20 meq 08/11/22 09:00 08/11/22 09:56 Potassium Chlori de Er 20 Meq Table t PO 20 meq DAILY EARNESTINE Administration Vitals/I&O/Wt Last Vital Signs Temp 98.5 F 08/11/22 12:00 Pulse 106 H 08/11/22 12:00 Resp 30 H 08/11/22 12:00 BP 125/74 08/11/22 12:00 Pulse Ox 90 08/11/22 12:00 O2 Del Method 08/11/22 12:00 O2 Flow Rate 4 08/11/22 08:00 08/10/22 08/11/22 08/11/22 22:59 06:59 14:59 Intake Total 910 / 910 120 / 1030 960 / 960 Output Total 700 / 700 400 / 1100 Balance 210 / 210 -280 / -70 960 / 960 Weight last 48 hrs Weight 66.877 kg Weight 66.996 kg Physical Exam Narrative: Patient is extremely hard of hearing, not in acute distress HENMT: COMMON NORMALS: normocephalic and atraumatic HEAD & SCALP: normocephalic and atraumatic Resp: COMMON NORMALS: clear to auscultation bilaterally AUSCULTATION: clear to auscultation bilaterally Cardio: COMMON NORMALS: No murmurs present (Cardio), No rub (Cardio) and Peripheral pulses 2+ throughout PERIPHERAL PULSES: Peripheral pulses 2+ throughout GI: COMMON NORMALS: Normal to inspection, nondistended, normoactive bowel sounds present, Soft to palpation, non-tender, No hepatosplenomegaly present and no masses AUSCULTATION: Yes normoactive bowel sounds PALPATION: Yes Soft to palpation and Yes No hepatosplenomegaly present RECTAL EXAM: deferred Extremity: COMMON NORMALS: no clubbing, cyanosis or edema and no pedal edema Urinary Catheter Management: Harvey: Cath Placed During This Visit: yes Reason for Continuing Indwelling Catheter: Accurate Measurement of Urinary Output in Critically Ill Patients Urinary Catheter Date of Insertion: 08/10/22 Urinary Catheter Time of Insertion: 16:05 Data 08/11/22 10:05 08/11/22 10:05 Micro: Microbiology 08/11/22 06:15 MRSA Culture - Final Nose 08/10/22 10:05 Blood Culture - Preliminary Blood SPECIMEN COLLECTED 08/11/22 00:40 Legionella Urinary Antigen - Final Urine,Voided Bacterial Antigens - Final 08/10/22 12:44 Blood Culture - Preliminary Blood SPECIMEN COLLECTED A&P Assessment and plan (1) Congestive heart failure: (2) Type 2 diabetes mellitus: Qualifiers: Diabetes mellitus complication status: with hyperglycemia Diabetes mellitus half-way insulin use: with half-way use Qualified Code(s): E11.65 - Type 2 diabetes mellitus with hyperglycemia; Z79.4 - [facility] (current) use of insulin (3) COPD (chronic obstructive pulmonary disease): (4) Dementia associated with other underlying disease with behavioral disturbance: (5) Hypertension: Qualifiers: Hypertension type: essential hypertension Qualified Code(s): I10 - Essential (primary) hypertension (6) CAD (coronary artery disease): Qualifiers: Associated angina: with unspecified angina Coronary Disease-Associated Artery/Lesion type: unspecified vessel or lesion type [place] vs. transplanted heart: [place] heart Qualified Code(s): I25.119 - Atherosclerotic heart disease of [place] coronary artery with unspecified angina pectoris (7) NSTEMI (non-ST elevated myocardial infarction): (8) Atrial fibrillation with RVR: (9) Osteoporosis: (10) Compression fracture: (11) Anemia: Omar Gonzalez is a 87 year old female with past medical history of hypertension diabetes coronary artery disease, recently discharged after 2 weeks of hospital stay after being managed for pneumonia and COPD On Bi[facility]AP to [facility] in [facility],was brought in today with chief complaint of shortness of breath,And desaturation at the [facility]. Assessment: Acute decompensated heart failure with preserved ejection fraction: Patient has, left-sided pleural effusion, elevated proBNP, orthopnea. Follow-up 2D echo: Normal LV size and systolic function as well as wall thickness, LVEF 60% grade 2 diastolic dysfunction.?[id number] aortic valve regurgitation. Continue Lasix 40 IV twice daily Monitor intake output charting Monitor daily weight Monitor electrolytes ( k>4,mg>2 ) Possible A. fib :: Patient has no known prior history of A. fib, risk factors include hypertension diabetes age COPD, possible sleep apnea. Documented EKG so for: Has not shown A. fib. EKG so far has shown sinus rhythm with PACs or ectopic atrial rhythm. Overnight telemetry has not shown any A. fib. As per ER she was in A. fib with RVR. I do not have telemetry strips for review. Continue metoprolol tartrate 50 mg p.o. twice daily Telemetry monitoring, EKG Currently family has decided against therapeutic anticoagulation, given her age and, underlying comorbid. conditions risk of fall, risk of bleeding. Currently on aspirin and prophylactic Lovenox NSTEMI: troponin: 149-124 6-hour troponin was not done: A.m. troponin was downtrendin Possible underlying pneumonia: The low clinical suspicion: Given her history of recent hospitalization: Ideally should be covered for MRSA, but given low clinical suspicion for possible underlying pneumonia, will avoid using Vanco for now. CTA chest: Has shown : CTA chest : No pulmonary embolism: Small left pleural effusion, Volume loss and atelectasis LEFT lower lobe. Elevated white count of 16.9 Follow blood culture Urine cultures MRSA PCR: Positive Urine Legionella antigen: Negative Bacterial antigen panel: Negative Procalcitonin: 2.02 Sputum gram stain and culture Currently on ceftriaxone azithromycin History of COPD: Continue DuoNebs Home inhalers Supplemental oxygen as needed BiPAP as needed Diabetes: SSI, diabetic diet, monitor fingerstick glucose Hypertension: On metoprolol #Anemia: Monitor H&H Transfuse to maintain hemoglobin greater than 7 Follow FOBT #MRSA PCR positive: We will use mupirocin nasal twice daily for 3 days. CODE STATUS:AND DVT prophylaxis on Lovenox Attestations Medical Necessity Statement*: Patient is to be in hospital management of heart failure, pneumonia. 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 transplanted heart: [place] heart NSTEMI (non-ST elevated myocardial infarction) I21.4 Atrial fibrillation with RVR I48.91 Osteoporosis M81.0 Compression fracture Anemia D64.9
[2022-08-11] MEDS: azithromycin 500 MG in sodium chloride 0.9% 250 ML 250 MG IV (16:21)
[2022-08-11 17:04] LABS: Glucose Point of Care 215 mg/dL (70-110)
[2022-08-11] MEDS: insulin glargine 100 units/1 mL 15 UNIT SUBCUT (17:20)
[2022-08-11] MEDS: cefTRIAXone 1,000 MG in sodium chloride 0.9% (plus) 50 ML 100 MG IV (17:20)
[2022-08-11] MEDS: mupirocin oint 22 gm 1 APPLIC NASAL (17:21)
[2022-08-11 20:34] LABS: Glucose Point of Care 147 mg/dL (70-110)
[2022-08-12] VITALS (12 sets, daily range): BP systolic 109–178; BP diastolic 44–86; PULSE 76–117; RESP 16–36; TEMP 36.2–36.8; O2SAT 93–99
[2022-08-12 00:37] LABS: Glucose Point of Care 71 mg/dL (70-110)
[2022-08-12 00:37] LABS: Glucose Point of Care 85 mg/dL (70-110)
[2022-08-12 00:37] LABS: Glucose Point of Care 31 mg/dL (70-110)
[2022-08-12 00:37] LABS: Glucose Point of Care 58 mg/dL (70-110)
[2022-08-12 00:37] LABS: Glucose Point of Care 34 mg/dL (70-110)
[2022-08-12] MEDS: dextrose 5%-sod chloride 0.9% 1,000 ML 125 ML IV (00:49)
--- NOTE | 2022-08-12 00:51 | PC.NURSE ---
During assessment, patient was noted to be significantly diaphoretic with increased lethargy not noted on previous exam. VSS. Patient blood sugar checked and noted to be hypoglycemic. Patient had no IV access at this time. Administered PO food as she was responsive, and IM glucagon per MAR. ball maker, and this RN at bedside attempting IV placement. supervisor machine setter and notified of hypoglycemia and lack of IV accesss. After multiple attempts from each RN and hospitalist, 24G IV obtained in the right chest. IVP dextrose given slowly. RN from ICU to beside with ultrasound, obtained large bore IV access and dextrose IVF infusing. Patient continued to become more alert and responsive throughout process, still confused but back to baseline. Serial POC glucose checked and trending up.
[2022-08-12 01:14] LABS: Glucose Point of Care 201 mg/dL (70-110)
[2022-08-12 02:21] LABS: Glucose Point of Care 294 mg/dL (70-110)
[2022-08-12] MEDS: levalbuterol 0.63 mg/3 mL Neb INHALATION ×4 (02:42→21:58)
[2022-08-12] MEDS: ipratropium 0.5 mg/2.5 mL Neb INHALATION ×4 (02:43→21:58)
[2022-08-12] MEDS: acetylcysteine 200 mg/mL SDV 4 mL 100 MG INHALATION ×4 (02:43→21:57)
[2022-08-12 03:57] LABS: Basophils # 0.1 10^3/uL (0.0-0.1); Basophils % 0.3 %; Eosinophils # 0.1 10^3/uL (0.0-0.8); Eosinophils % 0.2 %; Hematocrit 28.3 % (37.0-47.0); Hemoglobin 8.8 g/dL (11.5-15.3); Lymphocytes # 0.8 10^3/uL (0.8-4.8); Lymphocytes % 3.3 %; Mean Corpuscular HGB Conc 31.1 g/dL (30.0-36.0); Mean Corpuscular Hemoglobin 29.4 pg (28.0-34.0); Mean Corpuscular Volume 94.6 fl (81-99); Mean Platelet Volume 12.4 fL (7.4-10.4); Monocytes % 4.3 %; Neutrophils # 21.39 10^3/uL (1.8-7.7); Neutrophils % 91.4 %; Nucleated Red Blood Cells % 0 %; Platelet Count 249 10^3/cmm (130-400); Red Blood Count 2.99 10^6/uL (4.1-5.3); Red Cell Distribution Width 15.9 % (12.1-15.1); White Blood Count 23.4 10^3/uL (4.0-10.0)
[2022-08-12 04:04] LABS: Glucose Point of Care 260 mg/dL (70-110)
[2022-08-12 04:20] LABS: Alanine Aminotransferase 26 U/L (0-33); Albumin Level 2.4 g/dL (3.5-5.2); Alkaline Phosphatase 70 U/L (35-105); Anion Gap 11.4 (5-19); Aspartate Amino Transferase 16 U/L (0-32); Blood Urea Nitrogen 19 mg/dL (8-23); Calcium 7.5 mg/dL (8.5-10.5); Carbon Dioxide 38 mmol/L (22-29); Chloride 95 mmol/L (98-107); Globulin 3.2 g/dL (1.3-4.6); Glucose 291 mg/dL (65-115); Osmolality Calculated 305 mOsm/kg (285-295); Potassium 3.4 mmol/L (3.5-5.1); Sodium 141 mmol/L (136-145); Total Bilirubin 0.2 mg/dL (0.15-1.2); Total Protein 5.6 g/dL (6.6-8.7)
[2022-08-12 06:23] LABS: Glucose Point of Care 276 mg/dL (70-110)
[2022-08-12] MEDS: budesonide 0.5 mg/2 mL Neb INHALATION ×2 (08:03→21:58)
[2022-08-12] MEDS: insulin lispro 100 unit/1 mL SUBCUT ×2 (08:35→12:33)
[2022-08-12] MEDS: potassium chloride ER 20 mEq Tablet PO (08:36)
[2022-08-12] MEDS: FUROsemide 10 mg/mL SDV 4mL 40 MG IVP ×2 (08:36→17:04)
[2022-08-12] MEDS: potassium chloride ER 20 mEq Tablet 40 MEQ PO (08:36)
[2022-08-12] MEDS: aspirin 81 mg EC Tablet PO (08:36)
[2022-08-12] MEDS: mupirocin oint 22 gm 1 APPLIC NASAL ×2 (08:37→17:13)
--- NOTE | 2022-08-12 10:21 | PC.CHAP ---
Pastoral Care Encounter/Spiritual Assessment Type of Contact [] Declined iron carrier visit [] Patient/Family/Request visit [] Outpatient visit [] Follow-up visit [] Physician referral [] Code/Alert [x] Routine visit [] Staff referral [] Actively dying [] Patient sleeping [] Family support [] [] Out of room [] Palliative care [] [x] Receiving care in room [] Pre-surgical visit [] Trauma [x] Long length of stay [] ICU visit [] Other: Relational/Emotional Strength [] Patient feels connected with others/family/visitors/staff [] Distress [] Loneliness/isolation [] Abandonment Spirituality of Patient [] Person of Alice [] Attends Latter Day of their [place] [] Believes in Prayer [] Reads Bible or Mosque materials [] There are Spiritual issues to be addressed Nursing Attendant Interventions [] Prayer [] Active listening [x\] Non-anxious presence [] Spiritual/emotional support [] Crisis/trauma care [] Spiritual counseling [] Bereavement support [] Provided bereavement packet [] Provided Bible/devotional materials [] Provided toy/stuffed animal, coloring book to patient or family member [] Provided Communion [] Anointing/[place] [] Salvation [x ] Completed spiritual assessment [] Other: Impact on Illness or Injury [] Angry [] Fearful [] Anxious [] Often cries [] Exhaustion [] Unable to work [] Unable to attend baptist [] Unable to walk/stand [] Unable to read [] Unable to drive [] Unable to eat/drink [] Unable to sleep [] Unable to be with family [] Patient intubated [] Other: Summary senior unable to communate negtive response Time spent with patient 5 mins
[2022-08-12 11:51] LABS: Glucose Point of Care 471 mg/dL (70-110)
[2022-08-12] MEDS: enoxaparin 40 mg/0.4 mL Syringe SUBCUT (12:34)
--- NOTE | 2022-08-12 12:51 | PM.PN ---
Subjective Subjective: Patient was seen and examined this morning, heart rate varies from 90s to 110s, she had an episode of hypoglycemia last night, for which, she required dextrose as well as D5 NS. White blood cell count has gone up, though she has remained afebrile supplemental oxygen has not increased. Good urine output yesterday. Medications: Medication Review Details: Generic Name Dose Route Start Last Admin Trade Name Domoq PRN Reason Stop Dose Admin Acetylcysteine 100 mg 08/10/22 20:00 08/12/22 08:03 Acetylcysteine 2 00 Mg/Ml Sdv 4 Ml INHALATION 100 mg Q6H.RESP EARNESTINE Administration Aspirin 81 mg 08/11/22 09:00 08/12/22 08:36 Aspirin 81 Mg Ec Tablet PO 81 mg DAILY EARNESTINE Administration Budesonide 0.5 mg 08/10/22 20:00 08/12/22 08:03 Budesonide 0.5 M g/2 Ml Neb INHALATION 0.5 mg BID.RESPIRATORY S CH Administration Enoxaparin Sodium 40 mg 08/12/22 12:00 08/12/22 12:34 Enoxaparin 40 Mg /0.4 Ml Syringe SUBCUT 40 mg Q24H EARNESTINE Administration Furosemide 40 mg 08/11/22 07:00 08/12/22 08:36 Furosemide 10 Mg /Ml Sdv 4ml IVP 40 mg BID EARNESTINE Administration Ceftriaxone Sodium 1,000 mg/ 50 mls @ 100 mls/ hr 08/10/22 17:30 08/11/22 17:20 Sodium Chloride IV 100 mls/hr Q24H EARNESTINE Administration Protocol Azithromycin 500 m g/ Sodium 250 mls @ 250 mls /hr 08/10/22 16:30 08/11/22 16:21 Chloride IV 250 mls/hr Q24H EARNESTINE Administration Protocol Insulin Human Lisp ro 0 unit 08/11/22 12:00 08/12/22 12:33 Insulin Lispro 1 00 Unit/1 Ml SUBCUT 14 unit WM&BEDTIME EARNESTINE Administration Protocol Ipratropium Bromid e 0.5 mg 08/11/22 20:00 08/12/22 08:03 Ipratropium 0.5 Mg/2.5 Ml Neb INHALATION 0.5 mg Q6H.RESP EARNESTINE Administration Levalbuterol HCl 0.63 mg 08/11/22 20:00 08/12/22 08:03 Levalbuterol 0.6 3 Mg/3 Ml Neb INHALATION 0.63 mg Q6H.RESP EARNESTINE Administration Mupirocin 1 applic 08/11/22 18:00 08/12/22 08:37 Mupirocin Oint 2 2 Gm NASAL 1 applic BID EARNESTINE Administration Potassium Chloride 20 meq 08/11/22 09:00 08/12/22 08:36 Potassium Chlori de Er 20 Meq Table t PO 20 meq DAILY EARNESTINE Administration Verapamil HCl 80 mg 08/11/22 21:00 08/12/22 08:36 Verapamil 80 Mg Tablet PO 80 mg TID EARNESTINE Administration Vitals/I&O/Wt Last Vital Signs Temp 98.1 F 08/12/22 07:13 Pulse 117 H 08/12/22 12:05 Resp 22 H 08/12/22 12:05 BP 124/68 08/12/22 12:05 Pulse Ox 93 08/12/22 12:05 O2 Del Method 08/12/22 08:00 O2 Flow Rate 3 08/12/22 08:00 08/11/22 08/12/22 08/12/22 22:59 06:59 14:59 Intake Total 835 / 1795 172.083 / 1967.083 960 / 960 Output Total 1000 / 1000 600 / 1600 Balance -165 / 795 -427.917 / 367.083 960 / 960 Weight last 48 hrs Weight 66.877 kg Weight 66.996 kg Physical Exam Narrative: Patient is extremely hard of hearing, not in acute distress HENMT: COMMON NORMALS: normocephalic and atraumatic HEAD & SCALP: normocephalic and atraumatic Resp: COMMON NORMALS: clear to auscultation bilaterally AUSCULTATION: clear to auscultation bilaterally OTHER: Diminished air entry bilaterally Cardio: COMMON NORMALS: No murmurs present (Cardio), No rub (Cardio) and Peripheral pulses 2+ throughout PERIPHERAL PULSES: Peripheral pulses 2+ throughout GI: COMMON NORMALS: Normal to inspection, nondistended, normoactive bowel sounds present, Soft to palpation, non-tender, No hepatosplenomegaly present and no masses AUSCULTATION: Yes normoactive bowel sounds PALPATION: Yes Soft to palpation and Yes No hepatosplenomegaly present RECTAL EXAM: deferred Extremity: COMMON NORMALS: no clubbing, cyanosis or edema and no pedal edema Urinary Catheter Management: Harvey: Cath Placed During This Visit: yes Reason for Continuing Indwelling Catheter: Acute Urinary Retention or Obstruction Urinary Catheter Date of Insertion: 08/10/22 Urinary Catheter Time of Insertion: 16:05 Data 08/12/22 02:18 08/12/22 02:18 Micro: Microbiology 08/10/22 10:05 Blood Culture - Preliminary Blood NEGATIVE TO DATE 08/10/22 12:44 Blood Culture - Preliminary Blood NEGATIVE TO DATE 08/11/22 06:15 MRSA Culture - Final Nose 08/11/22 00:40 Legionella Urinary Antigen - Final Urine,Voided Bacterial Antigens - Final A&P Assessment and plan (1) Congestive heart failure: (2) Type 2 diabetes mellitus: Qualifiers: Diabetes mellitus long term care pharmacist insulin use: with fdc use Diabetes mellitus complication status: with hyperglycemia Qualified Code(s): E11.65 - Type 2 diabetes mellitus with hyperglycemia; Z79.4 - snf (current) use of insulin (3) COPD (chronic obstructive pulmonary disease): (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 transplanted heart: [place] heart Associated angina: with unspecified angina Qualified Code(s): I25.119 - Atherosclerotic heart disease of [place] coronary artery with unspecified angina pectoris (7) NSTEMI (non-ST elevated myocardial infarction): (8) Atrial fibrillation with RVR: (9) Osteoporosis: (10) Compression fracture: (11) Anemia: Omar Gonzalez is a 87 year old female with past medical history of hypertension diabetes coronary artery disease, recently discharged after 2 weeks of hospital stay after being managed for pneumonia and COPD On BiPAP to intermediate in [facility],was brought in today with chief complaint of shortness of breath,And desaturation at the intermediate. Assessment: Acute decompensated heart failure with preserved ejection fraction: Patient has, left-sided pleural effusion, elevated proBNP, orthopnea. Follow-up 2D echo: Normal LV size and systolic function as well as wall thickness, LVEF 60% grade 2 diastolic dysfunction.?[id number] aortic valve regurgitation. Continue Lasix 40 IV twice daily Monitor intake output charting Monitor daily weight Monitor electrolytes ( k>4,mg>2 ) Possible A. fib :: Patient has no known prior history of A. fib, risk factors include hypertension diabetes age COPD, possible sleep apnea. Documented EKG so for: Has not shown A. fib. EKG so far has shown sinus rhythm with PACs or ectopic atrial rhythm. Overnight telemetry has not shown any A. fib. As per ER she was in A. fib with RVR. I do not have telemetry strips for review. She was initially on metoprolol tartrate 50 mg p.o. twice daily, has been switched to verapamil 80 TID Telemetry monitoring, EKG Currently family has decided against therapeutic anticoagulation, given her age and, underlying comorbid. conditions risk of fall, risk of bleeding. Currently on aspirin and prophylactic Lovenox NSTEMI: Likely NSTEMI type II: troponin: 149-124 6-hour troponin was not done: A.m. troponin was downtrendin Patient has denied any chest pain. Will continue with medical management for now. Possible underlying pneumonia: The low clinical suspicion: Given her history of recent hospitalization: Ideally should be covered for MRSA, but given low clinical suspicion for possible underlying pneumonia, will avoid using Vanco for now. CTA chest: Has shown : CTA chest : No pulmonary embolism: Small left pleural effusion, Volume loss and atelectasis LEFT lower lobe. Elevated white count of 16.9 Follow blood culture Urine cultures MRSA PCR: Positive Urine Legionella antigen: Negative Bacterial antigen panel: Negative Procalcitonin: 2.02 Sputum gram stain and culture Currently on ceftriaxone azithromycin History of COPD: Continue DuoNebs Home inhalers Supplemental oxygen as needed BiPAP as needed Diabetes: SSI, diabetic diet, monitor fingerstick glucose Hypertension: On metoprolol #Anemia: Monitor H&H Transfuse to maintain hemoglobin greater than 7 Follow FOBT #MRSA PCR positive: We will use mupirocin nasal twice daily for 3 days. CODE STATUS:AND DVT prophylaxis on Lovenox Attestations Medical Necessity Statement*: Patient is in hospital for management of heart failure. Coding Level of Care Code Acute Code for [facility] Diagnoses Congestive heart failure I50.9 Type 2 diabetes mellitus E11.65; Z79.4 Diabetes mellitus fdc insulin use: with long term care pharmacist use Diabetes mellitus complication status: with hyperglycemia COPD (chronic obstructive pulmonary disease) J44.9 Dementia associated with other underlying disease with behavioral disturbance F02.81 Hypertension I10 Hypertension type: essential hypertension CAD (coronary artery disease) I25.119 Coronary Disease-Associated Artery/Lesion type: unspecified vessel or lesion type [place] vs. transplanted heart: [place] heart Associated angina: with unspecified angina NSTEMI (non-ST elevated myocardial infarction) I21.4 Atrial fibrillation with RVR I48.91 Osteoporosis M81.0 Compression fracture Anemia D64.9
[2022-08-12] MEDS: metoprolol tartrate 25 mg Tablet PO (13:43)
[2022-08-12 16:40] LABS: Glucose Point of Care 110 mg/dL (70-110)
--- NOTE | 2022-08-12 16:43 | XRR_ITS ---
PROCEDURE INFORMATION: Exam: XR Chest Exam date and time: 08/12/2022 4:59 PM Age: 87 years old Clinical indication: Shortness of breath; Additional info: SOB TECHNIQUE: Imaging protocol: Radiologic exam of the chest. Views: 1 view. COMPARISON: CR XR chest 1V [id number] 08/10/2022 12:24 PM FINDINGS: Lungs: Stable atelectasis/consolidation in the left lung base. Calcified granuloma in the right apex. Pleural spaces: Stable moderate left pleural effusion. No pneumothorax. Heart/Mediastinum: Unremarkable. No cardiomegaly. Bones/joints: Old left rib fractures. XR/XR chest 1V portable [id number] IMPRESSION: Stable moderate left pleural effusion.
[2022-08-12] MEDS: azithromycin 500 MG in sodium chloride 0.9% 250 ML 250 MG IV (17:06)
[2022-08-12] MEDS: LORazepam 2 mg/mL INJ 1 mL 0.5 MG IVP (17:32)
[2022-08-12 18:03] LABS: Glucose Point of Care 57 mg/dL (70-110)
[2022-08-12] MEDS: dextrose 50% syringe 50 mL IVP (18:13)
[2022-08-12 18:28] LABS: Glucose Point of Care 246 mg/dL (70-110)
[2022-08-12] MEDS: cefTRIAXone 1,000 MG in sodium chloride 0.9% (plus) 50 ML 100 MG IV (18:29)
[2022-08-12] MEDS: dextrose 5%-sod chloride 0.9% 1,000 ML 30 ML IV (18:37)
[2022-08-12] MEDS: vancomycin 1,000 MG in sodium chloride 0.9% 250 ML 250 MG IV (19:02)
--- NOTE | 2022-08-12 19:19 | PC.NURSE ---
pt had come progressively more tachypnic through day,though maintained o2 sats.attempted to place on bipap as instructed by dr linder,but pt could not tolerate it even after ativan given.pcxr obtained.at approx 1800,pt became diaphoretic and more agitated..stating 'i cant breathe! bgm checked and blood sugar was 57.dr linder ordered to give 2 amps of d50 iv push,stop s/s insulin,and start d5ns at 30 cc/hr. blood sugar came up to 246.pt became much calmer..and did not c/o sob.
[2022-08-12 21:07] LABS: Glucose Point of Care 356 mg/dL (70-110)
[2022-08-13] VITALS (19 sets, daily range): BP systolic 116–144; BP diastolic 47–71; PULSE 78–96; RESP 16–32; TEMP 36.7–36.9; O2SAT 86–99
[2022-08-13 00:12] LABS: Glucose Point of Care 361 mg/dL (70-110)
[2022-08-13] MEDS: ipratropium 0.5 mg/2.5 mL Neb INHALATION ×4 (03:13→20:59)
[2022-08-13] MEDS: levalbuterol 0.63 mg/3 mL Neb INHALATION ×4 (03:13→20:59)
[2022-08-13] MEDS: acetylcysteine 200 mg/mL SDV 4 mL 100 MG INHALATION ×4 (03:13→21:00)
[2022-08-13 05:06] LABS: Glucose Point of Care 300 mg/dL (70-110)
[2022-08-13 06:52] LABS: Glucose Point of Care 297 mg/dL (70-110)
[2022-08-13 07:18] LABS: Basophils % 0.4 %; Eosinophils # 0.1 10^3/uL (0.0-0.8); Eosinophils % 1.3 %; Hematocrit 28.9 % (37.0-47.0); Hemoglobin 8.6 g/dL (11.5-15.3); Lymphocytes # 1.6 10^3/uL (0.8-4.8); Mean Corpuscular HGB Conc 29.8 g/dL (30.0-36.0); Mean Corpuscular Volume 97.3 fl (81-99); Mean Platelet Volume 11.9 fL (7.4-10.4); Monocytes # 0.7 10^3/uL (0.2-0.9); Monocytes % 6.2 %; Neutrophils # 8.61 10^3/uL (1.8-7.7); Neutrophils % 77.6 %; Nucleated Red Blood Cells % 0 %; Platelet Count 239 10^3/cmm (130-400); Red Blood Count 2.97 10^6/uL (4.1-5.3); White Blood Count 11.1 10^3/uL (4.0-10.0)
[2022-08-13 07:38] LABS: Alanine Aminotransferase 28 U/L (0-33); Albumin Level 2.6 g/dL (3.5-5.2); Alkaline Phosphatase 58 U/L (35-105); Blood Urea Nitrogen 19 mg/dL (8-23); Calcium 7.5 mg/dL (8.5-10.5); Carbon Dioxide 33 mmol/L (22-29); Chloride 94 mmol/L (98-107); Globulin 2.7 g/dL (1.3-4.6); Glucose 280 mg/dL (65-115); Osmolality Calculated 294 mOsm/kg (285-295); Sodium 136 mmol/L (136-145); Total Bilirubin 0.3 mg/dL (0.15-1.2); Total Protein 5.3 g/dL (6.6-8.7)
[2022-08-13 07:39] LABS: Anion Gap 14.4 (5-19); Aspartate Amino Transferase 17 U/L (0-32); Potassium 5.4 mmol/L (3.5-5.1)
[2022-08-13] MEDS: sodium chloride 3.5% neb 4 mL Neb INHALATION ×2 (08:26→13:38)
[2022-08-13] MEDS: budesonide 0.5 mg/2 mL Neb INHALATION ×2 (08:26→20:59)
[2022-08-13] MEDS: mupirocin oint 22 gm 1 APPLIC NASAL ×2 (09:15→18:48)
[2022-08-13] MEDS: aspirin 81 mg EC Tablet PO (09:15)
[2022-08-13] MEDS: FUROsemide 10 mg/mL SDV 4mL 40 MG IVP ×2 (09:15→18:44)
[2022-08-13] MEDS: metoprolol tartrate 25 mg Tablet PO ×2 (09:16→20:43)
--- NOTE | 2022-08-13 10:24 | PC.NURSE ---
Dr linder at bedside instruction received to hold potassium due to Elevated Potassium
[2022-08-13 11:30] LABS: Glucose Point of Care 345 mg/dL (70-110)
--- NOTE | 2022-08-13 12:00 | P.PN_ITS ---
Subjective Subjective: Patient was seen and examined this morning, heart rate is better controlled.Was complaining of shortness of breath. Medications: Medication Review Details: Generic Name Dose Route Start Last Admin Trade Name Freq PRN Reason Stop Dose Admin Acetylcysteine 100 mg 08/10/22 20:00 08/13/22 08:26 Acetylcysteine 2 00 Mg/Ml Sdv 4 Ml INHALATION 100 mg Q6H.RESP EARNESTINE Administration Aspirin 81 mg 08/11/22 09:00 08/13/22 09:15 Aspirin 81 Mg Ec Tablet PO 81 mg DAILY EARNESTINE Administration Budesonide 0.5 mg 08/10/22 20:00 08/13/22 08:26 Budesonide 0.5 M g/2 Ml Neb INHALATION 0.5 mg BID.RESPIRATORY S CH Administration Dextrose 50 ml 08/10/22 16:19 08/12/22 18:13 Dextrose 50% Syr leandro 50 Ml IVP 50 ml PRN PRN Administration hypoglycemia prot ocol Protocol Enoxaparin Sodium 40 mg 08/12/22 12:00 08/12/22 12:34 Enoxaparin 40 Mg /0.4 Ml Syringe SUBCUT 40 mg Q24H EARNESTINE Administration Furosemide 40 mg 08/11/22 07:00 08/13/22 09:15 Furosemide 10 Mg /Ml Sdv 4ml IVP 40 mg BID EARNESTINE Administration Ceftriaxone Sodium 1,000 mg/ 50 mls @ 100 mls/ hr 08/10/22 17:30 08/12/22 19:00 Sodium Chloride IV Infused Q24H EARNESTINE Infusion Protocol Azithromycin 500 m g/ Sodium 250 mls @ 250 mls /hr 08/10/22 16:30 08/12/22 18:30 Chloride IV Infused Q24H EARNESTINE Infusion Protocol Vancomycin HCl 1,0 00 mg/ 250 mls @ 250 mls /hr 08/12/22 18:00 08/12/22 20:02 Sodium Chloride IV Infused Q24H EARNESTINE Infusion Ipratropium Bromid e 0.5 mg 08/11/22 20:00 08/13/22 03:13 Ipratropium 0.5 Mg/2.5 Ml Neb INHALATION 0.5 mg Q6H.RESP EARNESTINE Administration Levalbuterol HCl 0.63 mg 08/11/22 20:00 08/13/22 08:26 Levalbuterol 0.6 3 Mg/3 Ml Neb INHALATION 0.63 mg Q6H.RESP EARNESTINE Administration Lorazepam 0.5 mg 08/12/22 17:20 08/12/22 17:32 Lorazepam 2 Mg/M l Inj 1 Ml IVP 0.5 mg Q12H PRN Administration ANXIETY Metoprolol Tartrat e 25 mg 08/12/22 14:00 08/13/22 09:16 Metoprolol Tartr ate 25 Mg Tablet PO 25 mg BID@0900,2100 EARNESTINE Administration Mupirocin 1 applic 08/11/22 18:00 08/13/22 09:15 Mupirocin Oint 2 2 Gm NASAL 1 applic BID EARNESTINE Administration Sodium Chloride 4 ml 08/12/22 20:00 08/13/22 08:26 Sodium Chloride 3.5% Neb 4 Ml Neb INHALATION 4 ml TID.RESP EARNESTINE Administration Verapamil HCl 80 mg 08/11/22 21:00 08/13/22 09:16 Verapamil 80 Mg Tablet PO 80 mg TID EARNESTINE Administration Vitals/I&O/Wt Last Vital Signs Temp 98.5 F 08/13/22 07:26 Pulse 92 08/13/22 08:36 Resp 18 08/13/22 08:26 BP 117/47 08/13/22 07:26 Pulse Ox 94 08/13/22 08:26 O2 Del Method 08/13/22 08:26 O2 Flow Rate 4 08/13/22 08:26 FiO2 35 08/13/22 03:15 08/12/22 08/13/22 08/13/22 22:59 06:59 14:59 Intake Total 1280 / 2240 170 / 2410 960 / 960 Output Total 450 / 450 250 / 700 Balance 830 / 1790 -80 / 1710 960 / 960 Physical Exam Narrative: Patient is extremely hard of hearing, not in acute distress HENMT: COMMON NORMALS: normocephalic and atraumatic HEAD & SCALP: normocephalic and atraumatic Resp: COMMON NORMALS: clear to auscultation bilaterally AUSCULTATION: clear to auscultation bilaterally OTHER: Diminished air entry bilaterally Cardio: COMMON NORMALS: No murmurs present (Cardio), No rub (Cardio) and Peripheral pulses 2+ throughout PERIPHERAL PULSES: Peripheral pulses 2+ throughout GI: COMMON NORMALS: Normal to inspection, nondistended, normoactive bowel sounds present, Soft to palpation, non-tender, No hepatosplenomegaly present and no masses AUSCULTATION: Yes normoactive bowel sounds PALPATION: Yes Soft to palpation and Yes No hepatosplenomegaly present RECTAL EXAM: deferred Extremity: COMMON NORMALS: no clubbing, cyanosis or edema and no pedal edema Urinary Catheter Management: Harvey: Cath Placed During This Visit: yes Reason for Continuing Indwelling Catheter: Acute Urinary Retention or Obstruction Urinary Catheter Date of Insertion: 08/10/22 Urinary Catheter Time of Insertion: 16:05 Data 08/13/22 06:51 08/13/22 06:51 Micro: Microbiology 08/12/22 15:10 Occult Blood (FIT) - Final Stool - Stool Aspirate 08/10/22 10:05 Blood Culture - Preliminary Blood NEGATIVE TO DATE A&P Assessment and plan (1) Congestive heart failure: (2) Type 2 diabetes mellitus: Qualifiers: Diabetes mellitus bed bug exterminator insulin use: with longterm use Diabetes mellitus complication status: with hyperglycemia Qualified Code(s): E11.65 - Type 2 diabetes mellitus with hyperglycemia; Z79.4 - shelter (current) use of insulin (3) COPD (chronic obstructive pulmonary disease): (4) Dementia associated with other underlying disease with behavioral disturbance: (5) Hypertension: Qualifiers: Hypertension type: essential hypertension Qualified Code(s): I10 - Essential (primary) hypertension (6) CAD (coronary artery disease): Qualifiers: Coronary Disease-Associated Artery/Lesion type: unspecified vessel or lesion type [place] vs. transplanted heart: [place] heart Associated angina: with unspecified angina Qualified Code(s): I25.119 - Atherosclerotic heart disease of [place] coronary artery with unspecified angina pectoris (7) NSTEMI (non-ST elevated myocardial infarction): (8) Atrial fibrillation with RVR: (9) Osteoporosis: (10) Compression fracture: (11) Anemia: Omar Gonzalez is a 87 year old female with past medical history of hypertension diabetes coronary artery disease, recently discharged after 2 weeks of hospital stay after being managed for pneumonia and COPD On BiPAP to retirement in [facility],was brought in today with chief complaint of shortness of breath,And desaturation at the retirement. Assessment: Acute decompensated heart failure with preserved ejection fraction: Patient has, left-sided pleural effusion, elevated proBNP, orthopnea. Follow-up 2D echo: Normal LV size and systolic function as well as wall thickness, LVEF 60% grade 2 diastolic dysfunction.?[id number] aortic valve regurgitation. Continue Lasix 40 IV twice daily Monitor intake output charting Monitor daily weight Monitor electrolytes ( k>4,mg>2 ) Possible A. fib :: Patient has no known prior history of A. fib, risk factors include hypertension diabetes age COPD, possible sleep apnea. Documented EKG so for: Has not shown A. fib. EKG so far has shown sinus rhythm with PACs or ectopic atrial rhythm. Overnight telemetry has not shown any A. fib. As per ER she was in A. fib with RVR. I do not have telemetry strips for review. She was initially on metoprolol tartrate 50 mg p.o. twice daily, has been switched to verapamil 80 TID Telemetry monitoring, EKG Currently family has decided against therapeutic anticoagulation, given her age and, underlying comorbid. conditions risk of fall, risk of bleeding. Currently on aspirin and prophylactic Lovenox NSTEMI: Likely NSTEMI type II: troponin: 149-124 6-hour troponin was not done: A.m. troponin was downtrendin Patient has denied any chest pain. Will continue with medical management for now. Possible underlying pneumonia: The low clinical suspicion: Given her history of recent hospitalization: Ideally should be covered for MRSA, but given low clinical suspicion for possible underlying pneumonia, will avoid using Vanco for now. CTA chest: Has shown : CTA chest : No pulmonary embolism: Small left pleural effusion, Volume loss and atelectasis LEFT lower lobe. Elevated white count of 16.9 Follow blood culture:NTD Urine cultures MRSA PCR: Positive Urine Legionella antigen: Negative Bacterial antigen panel: Negative Procalcitonin: 2.02 Sputum gram stain and culture Currently on ceftriaxone azithromycin, and vancomycin. History of COPD: Continue DuoNebs Solu-Medrol 40 IV twice daily Home inhalers Supplemental oxygen as needed BiPAP as needed Diabetes: LDSSI, diabetic diet, monitor fingerstick glucose Hypertension: On metoprolol Verapamil #Anemia: Monitor H&H Transfuse to maintain hemoglobin greater than 7 FOBT: Positive #MRSA PCR positive: We will use mupirocin nasal twice daily for 3 days. CODE STATUS:AND DVT prophylaxis on Lovenox Attestations Medical Necessity Statement*: Patient is in hospital for continued, IV diuresis IV antibiotics steroids. Coding Level of Care Code Acute Code for g Fwd Diagnoses Congestive heart failure I50.9 Type 2 diabetes mellitus E11.65; Z79.4 Diabetes mellitus longterm insulin use: with longterm use Diabetes mellitus complication status: with hyperglycemia COPD (chronic obstructive pulmonary disease) J44.9 Dementia associated with other underlying disease with behavioral disturbance F02.81 Hypertension I10 Hypertension type: essential hypertension CAD (coronary artery disease) I25.119 Coronary Disease-Associated Artery/Lesion type: unspecified vessel or lesion type [place] vs. transplanted heart: [place] heart Associated angina: with unspecified angina NSTEMI (non-ST elevated myocardial infarction) I21.4 Atrial fibrillation with RVR I48.91 Osteoporosis M81.0 Compression fracture Anemia D64.9
[2022-08-13] MEDS: insulin lispro 100 unit/1 mL SUBCUT ×2 (13:29→21:11)
[2022-08-13] MEDS: enoxaparin 40 mg/0.4 mL Syringe SUBCUT (13:30)
--- NOTE | 2022-08-13 13:44 | PC.SOCIAL ---
IMM Update pg 2 of IMM updated and reviewed w/ patients daughter. Copy provided and copy dated, initialed and placed in chart.
[2022-08-13 14:00] LABS: Glucose Point of Care 413 mg/dL (70-110)
[2022-08-13] MEDS: azithromycin 500 MG in sodium chloride 0.9% 250 ML 250 MG IV (15:55)
[2022-08-13 16:13] LABS: Glucose Point of Care 305 mg/dL (70-110)
[2022-08-13 16:41] LABS: Glucose Point of Care 273 mg/dL (70-110)
--- NOTE | 2022-08-13 16:41 | PC.NURSE ---
patient yelling and stating she can't breath patient continues to pull off o2 after redirection patient placed on bi pap and has settled down and breathing is better
--- NOTE | 2022-08-13 17:09 | USR_ITS ---
PROCEDURE INFORMATION: Exam: US Duplex Lower Extremity Veins, Bilateral Exam date and time: 08/13/2022 7:19 PM Age: 87 years old Clinical indication: Screening exam; Stasis; Additional info: R/O dvt TECHNIQUE: Imaging protocol: Real-time duplex ultrasound of the bilateral extremities with 2-D couch scale, color Doppler flow and spectral waveform analysis including responses to compression and other maneuvers (when performed) with image documentation. Complete exam focused on the lower extremity veins. COMPARISON: No relevant prior studies available. FINDINGS: Right deep veins: Unremarkable. The common femoral, femoral, proximal profunda femoral and popliteal veins are patent without thrombus. Normal Doppler waveforms. Normal compressibility and/or augmentation response. Right superficial veins: Saphenofemoral junction is patent without thrombus. Left deep veins: Unremarkable. The common femoral, femoral, proximal profunda femoral and popliteal veins are patent without thrombus. Normal Doppler waveforms. Normal compressibility and/or augmentation response. Left superficial veins: Saphenofemoral junction is patent without thrombus. Soft tissues: Unremarkable. US/CV venous duplex [facility] [id number] IMPRESSION: No evidence of deep vein thrombosis.
--- NOTE | 2022-08-13 17:12 | XRR_ITS ---
PROCEDURE INFORMATION: Exam: XR Chest Exam date and time: 08/13/2022 5:56 PM Age: 87 years old Clinical indication: Other: Resp distress; Additional info: SOB TECHNIQUE: Imaging protocol: Radiologic exam of the chest. Views: 1 view. COMPARISON: CR (CHEST, ) 08/12/2022 4:59 PM FINDINGS: Lungs: Redemonstrated atelectasis of the left lung base. No new consolidation. Pleural spaces: Similar appearance of a moderate volume left pleural effusion. No pneumothorax. Heart/Mediastinum: Stable heart size. Bones/joints: Redemonstrated old left-sided rib fractures. No acute findings. XR/XR chest 1V portable [id number] IMPRESSION: Similar appearance of a moderate volume left pleural effusion.
[2022-08-13] MEDS: LORazepam 2 mg/mL INJ 1 mL 0.5 MG IVP (17:47)
[2022-08-13] MEDS: cefTRIAXone 1,000 MG in sodium chloride 0.9% (plus) 50 ML 100 MG IV (18:25)
[2022-08-13] MEDS: metOLazone 5 MG Tablet PO (18:25)
[2022-08-13] MEDS: vancomycin 1,000 MG in sodium chloride 0.9% 250 ML 250 MG IV (18:43)
[2022-08-13 21:04] LABS: Glucose Point of Care 293 mg/dL (70-110)
[2022-08-14] VITALS (17 sets, daily range): BP systolic 88–143; BP diastolic 52–71; PULSE 67–106; RESP 18–30; TEMP 36.6–37.1; O2SAT 90–100
[2022-08-14 00:05] LABS: Glucose Point of Care 324 mg/dL (70-110)
[2022-08-14] MEDS: levalbuterol 0.63 mg/3 mL Neb INHALATION ×4 (03:27→20:01)
[2022-08-14] MEDS: acetylcysteine 200 mg/mL SDV 4 mL 100 MG INHALATION ×4 (03:28→20:01)
[2022-08-14] MEDS: ipratropium 0.5 mg/2.5 mL Neb INHALATION ×3 (03:28→14:10)
[2022-08-14 04:43] LABS: Glucose Point of Care 288 mg/dL (70-110)
[2022-08-14 05:24] LABS: Hematocrit 28.7 % (37.0-47.0); Hemoglobin 8.5 g/dL (11.5-15.3); Lymphocytes # 0.6 10^3/uL (0.8-4.8); Lymphocytes % 6.7 %; Mean Corpuscular HGB Conc 29.6 g/dL (30.0-36.0); Mean Corpuscular Hemoglobin 28.3 pg (28.0-34.0); Mean Corpuscular Volume 95.7 fl (81-99); Mean Platelet Volume 12.1 fL (7.4-10.4); Monocytes % 0.5 %; Neutrophils # 8.18 10^3/uL (1.8-7.7); Neutrophils % 92.6 %; Nucleated Red Blood Cells % 0 %; Platelet Count 246 10^3/cmm (130-400); Red Cell Distribution Width 15.9 % (12.1-15.1); White Blood Count 8.8 10^3/uL (4.0-10.0)
[2022-08-14 05:44] LABS: Anion Gap 14.8 (5-19); Blood Urea Nitrogen 26 mg/dL (8-23); Calcium 7.8 mg/dL (8.5-10.5); Carbon Dioxide 33 mmol/L (22-29); Chloride 94 mmol/L (98-107); Glucose 286 mg/dL (65-115); Osmolality Calculated 299 mOsm/kg (285-295); Potassium 4.8 mmol/L (3.5-5.1); Sodium 137 mmol/L (136-145)
[2022-08-14 06:42] LABS: Glucose Point of Care 321 mg/dL (70-110)
[2022-08-14] MEDS: budesonide 0.5 mg/2 mL Neb INHALATION ×2 (07:58→20:01)
[2022-08-14] MEDS: aspirin 81 mg EC Tablet PO (08:32)
[2022-08-14] MEDS: insulin lispro 100 unit/1 mL SUBCUT ×5 (08:32→22:30)
[2022-08-14] MEDS: metOLazone 5 MG Tablet PO (08:32)
[2022-08-14] MEDS: FUROsemide 10 mg/mL SDV 4mL 40 MG IVP ×2 (08:32→17:21)
[2022-08-14] MEDS: metoprolol tartrate 25 mg Tablet PO ×2 (08:33→20:30)
[2022-08-14] MEDS: mupirocin oint 22 gm 1 APPLIC NASAL ×2 (08:33→17:21)
[2022-08-14 11:27] LABS: Glucose Point of Care 402 mg/dL (70-110)
[2022-08-14] MEDS: enoxaparin 40 mg/0.4 mL Syringe SUBCUT (11:45)
--- NOTE | 2022-08-14 13:59 | P.PN_ITS ---
Subjective Subjective: Patient was seen and examined this morning, heart rate is better controlled. Supplemental oxygen requirement appears to be decreasing. Medications: Medication Review Details: Generic Name Dose Route Start Last Admin Trade Name Freq PRN Reason Stop Dose Admin Acetylcysteine 100 mg 08/10/22 20:00 08/14/22 07:58 Acetylcysteine 2 00 Mg/Ml Sdv 4 Ml INHALATION 100 mg Q6H.RESP EARNESTINE Administration Aspirin 81 mg 08/11/22 09:00 08/14/22 08:32 Aspirin 81 Mg Ec Tablet PO 81 mg DAILY EARNESTINE Administration Budesonide 0.5 mg 08/10/22 20:00 08/14/22 07:58 Budesonide 0.5 M g/2 Ml Neb INHALATION 0.5 mg BID.RESPIRATORY S CH Administration Dextrose 50 ml 08/10/22 16:19 08/12/22 18:13 Dextrose 50% Syr leandro 50 Ml IVP 50 ml PRN PRN Administration hypoglycemia prot ocol Protocol Enoxaparin Sodium 40 mg 08/12/22 12:00 08/14/22 11:45 Enoxaparin 40 Mg /0.4 Ml Syringe SUBCUT 40 mg Q24H EARNESTINE Administration Furosemide 40 mg 08/11/22 07:00 08/14/22 08:32 Furosemide 10 Mg /Ml Sdv 4ml IVP 40 mg BID EARNESTINE Administration Ceftriaxone Sodium 1,000 mg/ 50 mls @ 100 mls/ hr 08/10/22 17:30 08/13/22 19:12 Sodium Chloride IV Infused Q24H EARNESTINE Infusion Protocol Azithromycin 500 m g/ Sodium 250 mls @ 250 mls /hr 08/10/22 16:30 08/13/22 16:56 Chloride IV Infused Q24H EARNESTINE Infusion Protocol Vancomycin HCl 1,0 00 mg/ 250 mls @ 250 mls /hr 08/12/22 18:00 08/13/22 20:22 Sodium Chloride IV Infused Q24H EARNESTINE Infusion Insulin Human Lisp ro 0 unit 08/13/22 12:00 08/14/22 11:45 Insulin Lispro 1 00 Unit/1 Ml SUBCUT 14 unit TIDWM EARNESTINE Administration Protocol Ipratropium Bromid e 0.5 mg 08/11/22 20:00 08/14/22 07:58 Ipratropium 0.5 Mg/2.5 Ml Neb INHALATION 0.5 mg Q6H.RESP EARNESTINE Administration Levalbuterol HCl 0.63 mg 08/11/22 20:00 08/14/22 07:58 Levalbuterol 0.6 3 Mg/3 Ml Neb INHALATION 0.63 mg Q6H.RESP EARNESTINE Administration Lorazepam 0.5 mg 08/12/22 17:20 08/13/22 17:47 Lorazepam 2 Mg/M l Inj 1 Ml IVP 0.5 mg Q12H PRN Administration ANXIETY Methylprednisolone Sodium Succinate 40 mg 08/13/22 11:00 08/14/22 11:44 Methylprednisolo ne Sod Succ 40 Mg/ Ml Inj IVP 40 mg Q8H EARNESTINE Administration Metolazone 5 mg 08/14/22 09:00 08/14/22 08:32 Metolazone 5 Mg Tablet PO 5 mg DAILY EARNESTINE Administration Metoprolol Tartrat e 25 mg 08/12/22 14:00 08/14/22 08:33 Metoprolol Tartr ate 25 Mg Tablet PO 25 mg BID@0900,2100 EARNESTINE Administration Mupirocin 1 applic 08/11/22 18:00 08/14/22 08:33 Mupirocin Oint 2 2 Gm NASAL 1 applic BID EARNESTINE Administration Sodium Chloride 4 ml 08/12/22 20:00 08/14/22 09:11 Sodium Chloride 3.5% Neb 4 Ml Neb INHALATION Not Given TID.RESP EARNESTINE Verapamil HCl 80 mg 08/11/22 21:00 08/14/22 08:33 Verapamil 80 Mg Tablet PO 80 mg TID EARNESTINE Administration Vitals/I&O/Wt Last Vital Signs Temp 98.2 F 08/14/22 07:06 Pulse 106 H 08/14/22 13:01 Resp 28 H 08/14/22 13:01 BP 134/53 08/14/22 13:01 Pulse Ox 98 08/14/22 13:01 O2 Del Method 08/14/22 08:00 O2 Flow Rate 3 08/14/22 08:00 FiO2 35 08/14/22 03:00 08/13/22 08/14/22 08/14/22 22:59 06:59 14:59 Intake Total 550 / 1510 1080 / 1080 Output Total 875 / 875 250 / 1125 Balance -325 / 635 -250 / 385 1080 / 1080 Physical Exam Narrative: Patient is extremely hard of hearing, not in acute distress HENMT: COMMON NORMALS: normocephalic and atraumatic HEAD & SCALP: normocephalic and atraumatic Resp: COMMON NORMALS: clear to auscultation bilaterally AUSCULTATION: clear to auscultation bilaterally OTHER: Diminished air entry bilaterally Cardio: COMMON NORMALS: No murmurs present (Cardio), No rub (Cardio) and Peripheral pulses 2+ throughout PERIPHERAL PULSES: Peripheral pulses 2+ throughout GI: COMMON NORMALS: Normal to inspection, nondistended, normoactive bowel sounds present, Soft to palpation, non-tender, No hepatosplenomegaly present and no masses AUSCULTATION: Yes normoactive bowel sounds PALPATION: Yes Soft to palpation and Yes No hepatosplenomegaly present RECTAL EXAM: deferred Extremity: COMMON NORMALS: no clubbing, cyanosis or edema and no pedal edema Urinary Catheter Management: Harvey: Cath Placed During This Visit: yes Reason for Continuing Indwelling Catheter: Accurate Measurement of Urinary Output in Critically Ill Patients Urinary Catheter Date of Insertion: 08/10/22 Urinary Catheter Time of Insertion: 16:05 Data 08/14/22 04:48 08/14/22 04:48 A&P Assessment and plan (1) Congestive heart failure: (2) Type 2 diabetes mellitus: Qualifiers: Diabetes mellitus [facility] insulin use: with [employer] department use Diabetes mellitus complication status: with hyperglycemia Qualified Code(s): E11.65 - T ype 2 diabetes mellitus with hyperglycemia; Z79.4 - care home (current) use of insulin (3) COPD (chronic obstructive pulmonary disease): (4) Dementia associated with other underlying disease with behavioral disturbance: (5) Hypertension: Qualifiers: Hypertension type: essential hypertension Qualified Code(s): I10 - Essential (primary) hypertension (6) CAD (coronary artery disease): Qualifiers: Coronary Disease-Associated Artery/Lesion type: unspecified vessel or lesion type [place] vs. transplanted heart: [place] heart Associated angina: unspecified angina Qualified Code(s): I25.119 - Atherosclerotic heart d isease of [place] coronary artery with unspecified angina pectoris (7) NSTEMI (non-ST elevated myocardial infarction): (8) Atrial fibrillation with RVR: (9) Osteoporosis: (10) Compression fracture: (11) Anemia: Omar Gonzalez is a 87 year old female with past medical history of hypertension diabetes coronary artery disease, recently discharged after 2 weeks of hospital stay after being managed for pneumonia and COPD On BiPAP to long term in [facility],was brought in today with chief complaint of shortness of breath,And desaturation at the long term. Assessment: Acute decompensated heart failure with preserved ejection fraction: Patient has, left-sided pleural effusion, elevated proBNP, orthopnea. Follow-up 2D echo: Normal LV size and systolic function as well as wall thickness, LVEF 60% grade 2 diastolic dysfunction.?[id number] aortic valve regurgitation. Continue Lasix 40 IV twice daily Monitor intake output charting Monitor daily weight Monitor electrolytes ( k>4,mg>2 ) Possible A. fib :: Patient has no known prior history of A. fib, risk factors include hypertension diabetes age COPD, possible sleep apnea. Documented EKG so for: Has not shown A. fib. EKG so far has shown sinus rhythm with PACs or ectopic atrial rhythm. Overnight telemetry has not shown any A. fib. As per ER she was in A. fib with RVR. I do not have telemetry strips for review. She was initially on metoprolol tartrate 50 mg p.o. twice daily, has been switched to verapamil 80 TID Telemetry monitoring, EKG Currently family has decided against therapeutic anticoagulation, given her age and, underlying comorbid. conditions risk of fall, risk of bleeding. Currently on aspirin and prophylactic Lovenox NSTEMI: Likely NSTEMI type II: troponin: 149-124 6-hour troponin was not done: A.m. troponin was downtrendin Patient has denied any chest pain. Will continue with medical management for now. Possible underlying pneumonia: The low clinical suspicion: Given her history of recent hospitalization: Ideally should be covered for MRSA, but given low clinical suspicion for possible underlying pneumonia, will avoid using Vanco for now. CTA chest: Has shown : CTA chest : No pulmonary embolism: Small left pleural effusion, Volume loss and atelectasis LEFT lower lobe. Elevated white count of 16.9 Follow blood culture:NTD Urine cultures MRSA PCR: Positive Urine Legionella antigen: Negative Bacterial antigen panel: Negative Procalcitonin: 2.02 Sputum gram stain and culture Currently on ceftriaxone azithromycin, and vancomycin. History of COPD: Continue DuoNebs Solu-Medrol 40 IV twice daily Home inhalers Supplemental oxygen as needed BiPAP as needed Diabetes: LDSSI, diabetic diet, monitor fingerstick glucose Hypertension: On metoprolol Verapamil #Anemia: Monitor H&H Transfuse to maintain hemoglobin greater than 7 FOBT: Positive #MRSA PCR positive: We will use mupirocin nasal twice daily for 3 days. CODE STATUS:AND DVT prophylaxis on Lovenox Attestations Medical Necessity Statement*: Patient is in hospital for management of heart failure, pneumonia Coding Level of Care Code Acute Code for [facility] Fwd Diagnoses Congestive heart failure I50.9 Type 2 diabetes mellitus E11.65; Z79.4 Diabetes mellitus [facility] use: with [facility] use Diabetes mellitus complication status: with hyperglycemia COPD (chronic obstructive pulmonary disease) J44.9 Dementia associated with other underlying disease with behavioral disturbance F02.81 Hypertension I10 Hypertension type: essential hypertension CAD (coronary artery disease) I25.119 Coronary Disease-Associated Artery/Lesion type: unspecified vessel or lesion type [place] vs. transplanted heart: [place] heart Associated angina: with unspecified angina NSTEMI (non-ST elevated myocardial infarction) I21.4 Atrial fibrillation with RVR I48.91 Osteoporosis M81.0 Compression fracture Anemia D64.9
[2022-08-14] MEDS: sodium chloride 3.5% neb 4 mL Neb INHALATION (14:10)
[2022-08-14] MEDS: azithromycin 500 MG in sodium chloride 0.9% 250 ML 250 MG IV (16:37)
[2022-08-14] MEDS: cefTRIAXone 1,000 MG in sodium chloride 0.9% (plus) 50 ML 100 MG IV (16:48)
[2022-08-14 16:58] LABS: Glucose Point of Care 515 mg/dL (70-110)
[2022-08-14 16:58] LABS: Glucose Point of Care 448 mg/dL (70-110)
[2022-08-14] MEDS: vancomycin 1,000 MG in sodium chloride 0.9% 250 ML 250 MG IV (17:21)
[2022-08-14 20:28] LABS: Glucose Point of Care 471 mg/dL (70-110)
[2022-08-14] MEDS: LORazepam 2 mg/mL INJ 1 mL 0.5 MG IVP (20:31)
[2022-08-14 22:27] LABS: Glucose Point of Care 466 mg/dL (70-110)
[2022-08-14 23:36] LABS: Glucose Point of Care 442 mg/dL (70-110)
[2022-08-14] MEDS: insulin glargine 100 units/1 mL 10 UNIT SUBCUT (23:56)
[2022-08-15] VITALS (9 sets, daily range): BP systolic 106–112; BP diastolic 66–74; PULSE 70–111; RESP 17–23; TEMP 36.4–36.7; O2SAT 93–97
[2022-08-15] MEDS: levalbuterol 0.63 mg/3 mL Neb INHALATION ×2 (01:42→07:35)
[2022-08-15] MEDS: acetylcysteine 200 mg/mL SDV 4 mL 100 MG INHALATION ×2 (01:42→07:35)
[2022-08-15 01:55] LABS: Glucose Point of Care 336 mg/dL (70-110)
[2022-08-15 04:51] LABS: Basophils % 0.1 %; Hematocrit 26.9 % (37.0-47.0); Hemoglobin 8.2 g/dL (11.5-15.3); Lymphocytes # 0.7 10^3/uL (0.8-4.8); Lymphocytes % 5.9 %; Mean Corpuscular HGB Conc 30.5 g/dL (30.0-36.0); Mean Corpuscular Hemoglobin 29.2 pg (28.0-34.0); Mean Corpuscular Volume 95.7 fl (81-99); Monocytes # 0.3 10^3/uL (0.2-0.9); Monocytes % 2.5 %; Neutrophils # 10.47 10^3/uL (1.8-7.7); Neutrophils % 91.2 %; Nucleated Red Blood Cells % 0 %; Platelet Count 239 10^3/cmm (130-400); Red Blood Count 2.81 10^6/uL (4.1-5.3); Red Cell Distribution Width 16.1 % (12.1-15.1); White Blood Count 11.5 10^3/uL (4.0-10.0)
[2022-08-15 05:10] LABS: Anion Gap 13.7 (5-19); Blood Urea Nitrogen 40 mg/dL (8-23); Calcium 7.9 mg/dL (8.5-10.5); Carbon Dioxide 34 mmol/L (22-29); Chloride 90 mmol/L (98-107); Glucose 293 mg/dL (65-115); Osmolality Calculated 299 mOsm/kg (285-295); Potassium 3.7 mmol/L (3.5-5.1); Sodium 134 mmol/L (136-145)
[2022-08-15 06:33] LABS: Glucose Point of Care 370 mg/dL (70-110)
[2022-08-15] MEDS: budesonide 0.5 mg/2 mL Neb INHALATION (07:35)
[2022-08-15] MEDS: sodium chloride 3.5% neb 4 mL Neb INHALATION (07:35)
[2022-08-15] MEDS: insulin lispro 100 unit/1 mL SUBCUT ×2 (08:48→12:11)
[2022-08-15] MEDS: mupirocin oint 22 gm 1 APPLIC NASAL (08:49)
[2022-08-15] MEDS: metoprolol tartrate 25 mg Tablet PO (08:49)
[2022-08-15] MEDS: aspirin 81 mg EC Tablet PO (08:49)
--- NOTE | 2022-08-15 09:47 | PM.DCS ---
Discharge Providers Date of Admission: 08/10/22 15:37 Date of Discharge: August 15, 2022 Attending Provider at Admission: Larry Rocha MD Attending Provider at Discharge: Larry Rocha MD Primary Care Provider: Ann Oneill NP Diagnoses at Discharge Discharge Diagnosis (1) Congestive heart failure: Status: Acute (2) Type 2 diabetes mellitus: Status: Acute Qualifiers: Diabetes mellitus complication status: with hyperglycemia Diabetes mellitus halfway insulin use: with halfway use Qualified Code(s): E11.65 - Type 2 diabetes mellitus with hyperglycemia; Z79.4 - [facility] (current) use of insulin (3) COPD (chronic obstructive pulmonary disease): Status: Acute (4) Dementia associated with other underlying disease with behavioral disturbance: Status: Acute (5) Hypertension: Status: Acute Qualifiers: Hypertension type: essential hypertension Qualified Code(s): I10 - Essential (primary) hypertension (6) CAD (coronary artery disease): Status: Acute Qualifiers: Associated angina: with unspecified angina Coronary Disease-Associated Artery/Lesion type: unspecified vessel or lesion type [place] vs. transplanted heart: [place] heart Qualified Code(s): I25.119 - Atherosclerotic heart disease of [place] coronary artery with unspecified angina pectoris (7) NSTEMI (non-ST elevated myocardial infarction): Status: Acute (8) Atrial fibrillation with RVR: Status: Acute (9) Osteoporosis: Status: Acute (10) Compression fracture: Status: Acute (11) Anemia: Status: Acute Reason for Visit Reason for Visit: RESP. DISTRESS Hospital Course Hospital Course Robin Gonzalez is a 87 year old female with past medical history of hypertension diabetes coronary artery disease, recently discharged after 2 weeks of hospital stay after being managed for pneumonia and COPD On BiPAP to skilled nursing in [facility],was brought in today with chief complaint of shortness of breath,And desaturation at the skilled nursing. She was admitted for the management of acute on chronic decompensated heart failure with ejection fraction, A. fib/SVT, NSTEMI type II, secondary to A. fib decompensated heart failure pneumonia,copd, diabetes, hypertension anemia. Patient was kept on IV diuresis, steroids antibiotics, DuoNebs, supplemental oxygen as needed, BiPAP, pulmonary toilet, she was started on verapamil during this hospital stay, and was discharged on verapamil 60 p.o. 3 times daily, as well as metoprolol tartrate 25 p.o. twice daily, not a good candidate for anticoagulation, given positive FOBT anemia, age, risk of fall. It was mutually agreed upon that to continue the patient just on aspirin for now, risk and benefit of being on anticoagulation, as well as of anticoagulation, was explained to the family.Heart rate was well controlled on above regimen.Patient was also discharged on p.o. Augmentin to complete antibiotic course for pneumonia. She was also discharged on p.o. prednisone, COPD. for her history of diabetes, Levemir dose has been decreased to 10 subcu twice daily, as at times her blood sugar falls to a dangerously low level, she has been continued on short acting insulin. 2D echo: Normal LV size and systolic function as well as wall thickness, LVEF 60% grade 2 diastolic dysfunction.?[id number] aortic valve regurgitation.CTA chest : No pulmonary embolism: Small left pleural effusion,?Volume loss and atelectasis LEFT lower lobe.Osteoporosis with compression fractures at T6 and T11. Blood culture was negative, sputum gram stain culture could not be obtained, urine Legionella antigen negative bacterial antigen panel negative, procalcitonin was 2.02, MRSA PCR was positive. Overall she has responded well to above medical management, she has been asked to be compliant with BiPAP. She was also continued on Lasix 40 p.o. twice daily, as well as home inhalers.She is being discharged in stable condition to skilled nursing.She has been asked to follow pulmonary as outpatient. Physical Exam Narrative: Patient is extremely hard of hearing, not in acute distress HENMT: COMMON NORMALS: normocephalic and atraumatic HEAD & SCALP: normocephalic and atraumatic Resp: COMMON NORMALS: clear to auscultation bilaterally AUSCULTATION: clear to auscultation bilaterally OTHER: Diminished air entry bilaterally Cardio: COMMON NORMALS: No murmurs present (Cardio), No rub (Cardio) and Peripheral pulses 2+ throughout PERIPHERAL PULSES: Peripheral pulses 2+ throughout GI: COMMON NORMALS: Normal to inspection, nondistended, normoactive bowel sounds present, Soft to palpation, non-tender, No hepatosplenomegaly present and no masses AUSCULTATION: Yes normoactive bowel sounds PALPATION: Yes Soft to palpation and Yes No hepatosplenomegaly present RECTAL EXAM: deferred Extremity: COMMON NORMALS: no clubbing, cyanosis or edema and no pedal edema Urinary Catheter Management: Harvey: Cath Placed During This Visit: yes Reason for Continuing Indwelling Catheter: Other Urinary Catheter Date of Insertion: 08/10/22 Urinary Catheter Time of Insertion: 16:05 Discharge Data Studies Completed and Pending Completed Studies During Hospitalization Category Date Time Status CT angio chest PE protcl [id number] Stat Cat Scan 08/10/22 13:51 Completed XR chest 1V [id number] Stat Exams 08/10/22 12:03 Completed XR chest 1V portable [id number] Routine Exams 08/12/22 16:43 Completed XR chest 1V portable [id number] Routine Exams 08/13/22 17:12 Completed CV. echo complete* [id number] Routine Ultrasound 08/10/22 16:23 Completed US venous duplex lower extremity bilat [CV venous Ultrasound 08/13/22 17:09 [place] [id number]] Routine Pending at discharge Category Date Time Status Blood Culture Routine Lab 08/10/22 10:05 Results Sputum Culture and Gram Stain Routine Lab 08/10/22 16:22 Uncollected Vancomycin Trough Timed Lab 08/15/22 17:00 Ordered Radiology Impressions Chest CTA 08/10/22 13:51 IMPRESSION: 1. No pulmonary embolism. 2. Volume loss and atelectasis LEFT lower lobe with a small LEFT pleural effusion. 3. Mild LEFT heart enlargement. 4. Moderate atherosclerosis thoracic aorta. 5. Osteoporosis with compression fractures at T6 and T11. Venous Duplex 08/13/22 17:09 IMPRESSION: No evidence of deep vein thrombosis. Chest X-Ray 08/13/22 17:12 IMPRESSION: Similar appearance of a moderate volume left pleural effusion. Laboratory Results WBC 11.5 10^3/uL (4.0-10.0) H 08/15/22 04:30 RBC 2.81 10^6/uL (4.1-5.3) L 08/15/22 04:30 Hgb 8.2 g/dL (11.5-15.3) L 08/15/22 04:30 Hct 26.9 % (37.0-47.0) L 08/15/22 04:30 MCV 95.7 fl (81-99) 08/15/22 04:30 MCH 29.2 pg (28.0-34.0) 08/15/22 04:30 MCHC 30.5 g/dL (30.0-36.0) 08/15/22 04:30 RDW 16.1 % (12.1-15.1) H 08/15/22 04:30 Plt Count 239 10^3/cmm (130-400) 08/15/22 04:30 MPV 12.0 fL (7.4-10.4) H 08/15/22 04:30 Neut % (Auto) 91.2 % 08/15/22 04:30 Lymph % (Auto) 5.9 % 08/15/22 04:30 Taney % (Auto) 2.5 % 08/15/22 04:30 Eos % (Auto) 0.0 % 08/15/22 04:30 Baso % (Auto) 0.1 % 08/15/22 04:30 Neut # (Auto) 10.47 10^3/uL (1.8-7.7) H 08/15/22 04:30 Lymph # (Auto) 0.7 10^3/uL (0.8-4.8) L 08/15/22 04:30 Taney # (Auto) 0.3 10^3/uL (0.2-0.9) 08/15/22 04:30 Eos # (Auto) 0.0 10^3/uL (0.0-0.8) 08/15/22 04:30 Baso # (Auto) 0.0 10^3/uL (0.0-0.1) 08/15/22 04:30 Nucleated RBC % (auto) 0 % 08/15/22 04:30 Nucleated RBCs # 0.0 /100WBC 08/15/22 04:30 PT 17.20 SECONDS (12.1-14.9) H 08/11/22 10:05 INR 1.37 (0.8-1.2) H 08/11/22 10:05 APTT 27.8 SECONDS (23.9-36.7) 08/11/22 10:05 D-Dimer 2.00 ug/mIFEU (0-0.59) H 08/10/22 12:44 Specimen Type Arterial 08/10/22 15:05 Sample Site Radial, left 08/10/22 15:05 ABG pH 7.45 (7.35-7.45) 08/10/22 15:05 ABG pCO2 57.3 mmHg (35-45) H 08/10/22 15:05 ABG pO2 57.5 mmHg (80.0-100.0) L 08/10/22 15:05 ABG HCO3 39.7 mmol/L (22-26) H 08/10/22 15:05 ABG O2 Saturation 90.7 08/10/22 15:05 ABG Base Excess 13.8 mmol/L (-2.0-2.0) H 08/10/22 15:05 Abel Test Pos 08/10/22 15:05 A-a O2 Gradient 2.8 mmHg (5-10) L 08/10/22 15:05 Hematocrit 30.2 % (37-47) L 08/10/22 15:05 Hgb O2 Saturation 89.0 % (95-100) L 08/10/22 15:05 Carboxyhemoglobin 1.2 %THgb (0.4-20.1) 08/10/22 15:05 Methemoglobin 0.6 % (0.4-1.5) 08/10/22 15:05 Total Hemoglobin 9.9 g/dL (12-16) L 08/10/22 15:05 Sodium 144.0 mmol/L (131-143) H 08/10/22 15:05 Potassium 4.1 mmol/L (3.5-5.0) 08/10/22 15:05 Glucose 97.0 mg/dL (70-115) 08/10/22 15:05 Ionized Calcium 1.1 mmol/L (1.1-1.4) 08/10/22 15:05 O2 Delivery Device Nc 08/10/22 15:05 O2 Liters/Min 4.0 % 08/10/22 15:05 Machine Puller ID [place] 08/10/22 15:05 Sodium 134 mmol/L (136-145) L 08/15/22 04:30 Potassium 3.7 mmol/L (3.5-5.1) 08/15/22 04:30 Chloride 90 mmol/L (98-107) L 08/15/22 04:30 Carbon Dioxide 34 mmol/L (22-29) H 08/15/22 04:30 Anion Gap 13.7 (5-19) 08/15/22 04:30 BUN 40 mg/dL (8-23) H 08/15/22 04:30 Creatinine 0.6 mg/dL (0.5-0.9) 08/15/22 04:30 GFR Calculation Not Reportable 08/15/22 04:30 Glucose 293 mg/dL (65-115) H 08/15/22 04:30 POC Glucose 370 mg/dL (70-110) H 08/15/22 06:22 Calculated Osmolality 299 mOsm/kg (285-295) H 08/15/22 04:30 Lactate 1.5 mmol/L (0.5-2.2) 08/10/22 12:44 Calcium 7.9 mg/dL (8.5-10.5) L 08/15/22 04:30 Magnesium 1.2 mg/dL (1.7-2.3) L 08/11/22 10:05 Total Bilirubin 0.3 mg/dL (0.15-1.2) 08/13/22 06:51 AST 17 U/L (0-32) 08/13/22 06:51 ALT 28 U/L (0-33) 08/13/22 06:51 Alkaline Phosphatase 58 U/L (35-105) 08/13/22 06:51 Troponin T Gen 5 ng/L 93 ng/L (0-10) H 08/11/22 10:05 Troponin T Baseline 149 ng/L (0-10) H* 08/10/22 12:44 Troponin T 120 Minute 124.2 ng/L (0-10) H 08/10/22 14:25 Delta Troponin T -24.8 ABS# (0-10) L 08/10/22 14:25 NT-Pro-B Natriuret Pep 50493 pg/mL (0-450) H 08/10/22 12:44 Total Protein 5.3 g/dL (6.6-8.7) L 08/13/22 06:51 Albumin 2.6 g/dL (3.5-5.2) L 08/13/22 06:51 Globulin 2.7 g/dL (1.3-4.6) 08/13/22 06:51 Procalcitonin 2.02 ng/mL (0-0.5) H 08/11/22 10:05 Vitals Last Vital Signs Temp 98.0 F 08/15/22 08:06 Pulse 92 08/15/22 08:00 Resp 23 H 08/15/22 08:00 BP 112/74 08/15/22 08:00 Pulse Ox 97 08/15/22 08:00 O2 Del Method 08/15/22 08:00 O2 Flow Rate 4 08/15/22 07:39 FiO2 35 08/15/22 04:00 Discharge Plan Discharge Patient Disposition: Xfer SNF Condition: Stable Prescriptions: New aspirin 81 mg Tablet,Delayed Release (Dr/Ec) 81 mg PO DAILY 30 Days Qty: 30 0RF verapamil 80 mg Tablet 80 mg PO TID 30 Days Qty: 90 3RF metoprolol tartrate 25 mg Tablet 25 mg PO BID@0900,2100 30 Days Qty: 60 2RF Augmentin 500-125 mg tablet 1 tab PO BID Qty: 14 0RF prednisone 50 mg tablet 50 mg PO DAILY 7 Days Qty: 7 0RF Xopenex HFA 45 mcg/actuation HFA aerosol inhaler 1 inh inhalation Q6H PRN (Reason: shortness of breath or wheezing) Qty: 15 2RF Continued melatonin 1 mg tablet 1 mg PO BEDTIME nitroglycerin 0.4 mg tablet, sublingual 0.4 mg SUBLINGUAL Q5M PRN (Reason: Chest Pain) metformin 500 mg tablet See Rx Instructions .ROUTE .COMPLEX Qty: 180 3RF Dose Instruction: TAKE TWO TABLETS BY MOUTH TWICE A DAY Rx Instructions: TAKE TWO TABLETS BY MOUTH TWICE A DAY insulin aspart U-100 [Novolog FlexPen U-100 Insulin] 100 unit/mL (3 mL) insulin pen See Rx Instructions SUBCUT QAM Rx Instructions: subcutaneously before meals. 150-199 3 units- 200-249-6 units 250-299 9 gzivy-149-754-12 units-350 up 15 units. Rybelsus 3 mg tablet 3 mg PO DAILY (DME) pen needle, diabetic [BD Ultra-Fine Micro Pen Needle] 32 gauge x 1/4 needle See Rx Instructions .ROUTE .MEDSUPPLY Qty: 50 11RF Rx Instructions: As directed baclofen 10 mg tablet See Rx Instructions .ROUTE .COMPLEX Qty: 30 11RF Dose Instruction: TAKE ONE TABLET BY MOUTH ONCE DAILY AT BEDTIME Rx Instructions: TAKE ONE TABLET BY MOUTH ONCE DAILY AT BEDTIME potassium chloride 20 mEq tablet extended release 20 meq PO DAILY Qty: 30 11RF Symbicort 160-4.5 mcg/actuation HFA aerosol inhaler See Rx Instructions .ROUTE .COMPLEX Qty: 10.2 5RF Dose Instruction: INHALE TWO (2) PUFFS BY MOUTH TWICE A DAY Rx Instructions: INHALE TWO (2) PUFFS BY MOUTH TWICE A DAY albuterol sulfate 90 mcg/actuation HFA aerosol inhaler See Rx Instructions .ROUTE .COMPLEX Qty: 8.5 11RF Dose Instruction: INHALE TWO (2) PUFFS BY MOUTH EVERY SIX (6) HOURS NEEDED SHORTNESS OF BREATH OR WHEEZING Rx Instructions: INHALE TWO (2) PUFFS BY MOUTH EVERY SIX (6) HOURS NEEDED SHORTNESS OF BREATH OR WHEEZING acetaminophen 325 mg Tablet 650 mg PO Q4H PRN (Reason: Pain) loperamide 2 mg Capsule 2 mg PO ONCE PRN (Reason: Diarrhea) Rx Instructions: administer after each loose stool until symptoms controlled; do not exceed 8 mg per 24 hrs Milk of Magnesia 400 mg/5 mL Suspension 30 ml PO DAILY PRN (Reason: Constipation) bisacodyl 10 mg Suppository 10 mg [place] DAILY PRN (Reason: Constipation) Changed furosemide 40 mg tablet 40 mg PO BID 30 Days Qty: 60 3RF Levemir FlexTouch U-100 Insuln 100 unit/mL (3 mL) insulin pen 10 unit SUBCUT BID 30 Days Qty: 3 0RF Discharge Orders: Discharge Order (Routine); Ordered 08/15/22 Ordered By: Larry Rocha Referrals: [facility] [Outside] ([facility] will call you to schedule a follow-up appointment. If you have any questions, please call [phone].) Avery Brasher MD [Physician] - 1 week ([facility] will call to schedule an appointment for you with Dr. Brasher. If you hav any questions, please call [phone].) Ann Oneill NP [Primary Care Provider] - 2 weeks ([facility] will call to schedule an appointment for you with Dr. Oneill. If you hav any questions, please call [phone].) Patient Instructions: Aspirin/Codeine (By mouth), Metoprolol (By mouth), Verapamil (By mouth), Prednisone (By mouth) (predniSONE Intensol, Prednicot, Deltasone, Eileen), Amoxicillin (By mouth), Levalbuterol (By breathing), Heart Attack (DC), Heart Failure (DC), A-fib (Atrial Fibrillation) (DC), Calcium and Osteoporosis (DC), Anemia (DC), CHF Stoplight, Opioid Safety, Post Heart Attack Stoplight Discharge Attestations Time Spent in Discharge Care*: less than 30 min Quality Metrics Clinical Quality Measures [ No reported AMI, CVA or VTE this stay] Coding Level of Care Code Acute Chg FW DC note Diagnoses Congestive heart failure I50.9 Type 2 diabetes mellitus E11.65; Z79.4 Diabetes mellitus complication status: with hyperglycemia Diabetes mellitus halfway insulin use: with halfway use COPD (chronic obstructive pulmonary disease) J44.9 Dementia associated with other underlying disease with behavioral disturbance F02.81 Hypertension I10 Hypertension type: essential hypertension CAD (coronary artery disease) I25.119 Associated angina: with unspecified angina Coronary Disease-Associated Artery/Lesion type: unspecified vessel or lesion type [place] vs. transplanted heart: [place] heart NSTEMI (non-ST elevated myocardial infarction) I21.4 Atrial fibrillation with RVR I48.91 Osteoporosis M81.0 Compression fracture Anemia D64.9
--- NOTE | 2022-08-15 10:52 | PC.SOCIAL ---
IMM Update pg 2 of IMM updated and reviewed w/ patient. Copy provided and Copy in chart dated, and initialed.
[2022-08-15 11:42] LABS: Glucose Point of Care 457 mg/dL (70-110)
[2022-08-15] MEDS: enoxaparin 40 mg/0.4 mL Syringe SUBCUT (12:12)
[2022-08-15 12:20] LABS: SARS Covid-2 Antigen negative (Negative)
--- NOTE | 2022-08-15 14:21 | PC.NURSE ---
report phoned to [email or web address] at [email or web address] by [facility] ambulance stretcher at [phone]
== END 2022-08-15 12:30 | disposition skilled nursing facility (03) | DRG 280 ==
LOC: ER 16:02 → CSU 16:13
PROVIDERS: Admitting Provider Internal Medicine; Emergency Provider Emergency Medicine; PCP Nurse Practitioner Family; Visit Provider Internal Medicine
DX: I11.0 Hypertensive heart disease with heart failure (principal); I50.33 Acute on chronic diastolic (congestive) heart failure; I21.A1 Myocardial infarction type 2; F03.918 Unspecified dementia, unspecified severity, with other behavioral disturbance; M48.54XA Collapsed vertebra, not elsewhere classified, thoracic region, initial encounter for fracture; E11.65 Type 2 diabetes mellitus with hyperglycemia; J44.9 Chronic obstructive pulmonary disease, unspecified; I25.10 Atherosclerotic heart disease of native coronary artery without angina pectoris; I48.91 Unspecified atrial fibrillation; D64.9 Anemia, unspecified; Z87.01 Personal history of pneumonia (recurrent); Z99.89 Dependence on other enabling machines and devices; I35.1 Nonrheumatic aortic (valve) insufficiency; Z79.84 Long term (current) use of oral hypoglycemic drugs; Z79.4 Long term (current) use of insulin; Z79.51 Long term (current) use of inhaled steroids; R19.5 Other fecal abnormalities; Z22.322 Carrier or suspected carrier of Methicillin resistant Staphylococcus aureus; Z87.891 Personal history of nicotine dependence
CPT/HCPCS: 36415; 36416; 36600; 51702; 71045; 71275; 80048; 80051; 80053; 82274; 82330; 82805; 82962; 83605; 83735; 83880; 84145; 84484; 85025; 85378; 85610; 85730; 86403; 87040; 87426; 87449; 87641; 92523; 92526; 92610; 93005; 93306; 93970; 94640; 94660; 96372; 96374; 97161; 97530; 99285; J0456; J0696; J1610; J1650; J1815; J1940; J2060; J2920; J3370; J3475; J7040; J7042; J7050; J7608; J7614; J7626; J7644; Q9967